=== PATIENT | female | born 1990 | race African-American/Black ===

== ENCOUNTER 2020-06-07 13:20 | Emergency (ER) | payer SELFPAY ==
--- NOTE | 2020-06-07 15:41 | PC.NURSE ---
CALLED WR PATIENT NO RESPONSE
--- NOTE | 2020-06-07 15:51 | PC.NURSE ---
Attempted to call pt to triage, no answer in waiting room.
== END 2020-06-07 16:04 | disposition left against medical advice (07) ==
PROVIDERS: Emergency Provider Emergency Medicine
DX: G44.309 Post-traumatic headache, unspecified, not intractable (principal)
CPT/HCPCS: 99281

== ENCOUNTER 2020-06-08 23:57 | Emergency (ER) | payer MEDICAID, SELFPAY ==
[2020-06-09 00:33] VITALS: BP 121/72; PULSE 84; RESP 16; TEMP 36.1; O2SAT 98; BMI 50.6
--- NOTE | 2020-06-09 00:55 | ED.HEATRA ---
HPI - Head Injury General Chief complaint: Headache Stated complaint: HEADACHE/HEAD INJURY Time Seen by Provider: 06/09/20 00:54 Source: patient Mode of arrival: ambulatory Limitations: no limitations History of Present Illness HPI Narrative: Patient hit her back of the head to under sink when getting up about 3 days ago no loss of consciousness no laceration no swelling of the head patient been complaining of mild headache since then MD Complaint: head injury and head pain Onset (ago): day(s) (3) Related Data Previous Rx's Medication Instructions Recorded coccuvlewd-yotamszfdgrkr-vcqw 1 cap PO Q6H PRN #20 cap 06/09/20 [Fioricet] Allergies Allergy/AdvReac Type Severity Reaction Status Date / Time naproxen [NAPROXEN] Allergy Mild VOMITING Verified 06/09/20 00:33 Review of Systems Review of Systems: REVIEW OF SYSTEMS: Pertinent positives and negatives are stated above in the history. GEN: no fevers, chills, fatigue HEENT: no nasal congestion, sore throat, ear pain NEURO: no , dizziness, focal weakness PULM: no cough, shortness of breath CV: no chest pain, palpitations, LE edema ABD: no abdominal pain, nausea, vomiting, diarrhea : no dysuria, urgency, frequency SKIN: no rash ROS otherwise negative x 10 PMFSH Past Medical History Surgical History H/O knee surgery Physical Exam Vital Signs: Vital Signs: Last Vital Signs Temp 96.9 F 06/09/20 00:33 Pulse 84 06/09/20 00:33 Resp 16 06/09/20 00:33 BP 121/72 06/09/20 00:33 Pulse Ox 98 06/09/20 00:33 Body Mass Index 50.6 Appearance: Alert. Oriented X3. No acute distress. Eyes: Pupils equal, round and reactive to light. ENT: Pharynx normal. mild soft tissue tenderness L back of the head no significant swelling EAC normal bilateral Neck: Normal inspection. Neck supple. CVS: Normal heart rate and rhythm. Pulses normal. Respiratory: No respiratory distress. Breath sounds normal. Abdomen: Soft and nontender. Skin: Skin warm and dry. Normal skin color. Normal skin turgor. Extremities: No lower extremity edema. Good range of movement Neuro: Oriented X 3. No motor deficit. No sensory deficit. MDM - Head Injury Differential Diagnosis Differential diagnosis: Likely closed head injury Discharge Plan Discharge Clinical Impression: Head injury, acute, without loss of consciousness Qualifiers: Encounter type: initial encounter Qualified Code(s): S09.90XA - Unspecified injury of head, initial encounter Patient Disposition: Home, Self-Care Instructions: Head Injury (ED) Additional Instructions: apply ice pack and take pain medicine as prescribed. Report to the ER if any seizures vomiting focal weakness Prescriptions: New ozjmrghroj-dcbagjoltfpmu-ddfu [Fioricet] 50-300-40 mg capsule 1 cap PO Q6H PRN (Reason: pain) Qty: 20 RF: 0
--- NOTE | 2020-06-09 01:16 | PC.NURSE ---
pt medicated per emar for 10/10 head pain. pt neuro intact. perrla. nad at this time.
== END 2020-06-09 01:42 | disposition home or self-care (01) ==
LOC: HO.ED 06-09 01:25
PROVIDERS: Emergency Provider Internal Medicine
DX: S09.90XA Unspecified injury of head, initial encounter (principal); G44.309 Post-traumatic headache, unspecified, not intractable; Y29.XXXA Contact with blunt object, undetermined intent, initial encounter; Y93.9 Activity, unspecified; Y92.002 Bathroom of unspecified non-institutional (private) residence as the place of occurrence of the external cause; Y99.9 Unspecified external cause status; Z79.899 Other long term (current) drug therapy
CPT/HCPCS: 99283; 99284

== ENCOUNTER 2020-08-02 13:41 | Outpatient (REF) | payer MEDICAID, SELFPAY | END 2020-08-02 13:42 | disposition home or self-care (01) | LOC: HO.LAB 13:41 | PROVIDERS: Visit Provider Internal Medicine | DX: Z20.828 Contact with and (suspected) exposure to other viral communicable diseases (principal) | CPT/HCPCS: C9803; U0003 ==

== ENCOUNTER 2021-05-10 04:14 | Emergency (ER) | payer MEDICAID, SELFPAY ==
--- NOTE | ~2021-05-10 | XR_ITS ---
EXAMINATION: XR FOOT, LEFT CLINICAL INFORMATION: Pain and swelling of the left foot. COMPARISON: None TECHNIQUE: AP, lateral, and oblique views of the left foot. FINDINGS: No fracture or dislocation. Alignment is anatomic. Joint spaces are maintained. Mild soft tissue swelling of the foot. XR/XR foot LT min 3V IMPRESSION: No osseous abnormality.
[2021-05-10 04:16] VITALS: BP 113/70; PULSE 82; RESP 16; TEMP 36.6; O2SAT 97; BMI 57.4
--- NOTE | 2021-05-10 04:40 | ED_ITS ---
HPI - General Adult General Chief complaint: Back Pain/Injury Stated complaint: Lower back pain L foot pain Time Seen by Provider: 05/10/21 04:28 Source: patient Mode of arrival: ambulatory Limitations: no limitations History of Present Illness HPI narrative: 31-year-old female who presents emergency department for evaluation of 2 complaints. Complaint 1: The patient states that yesterday afternoon she was sitting on the toilet. When she stood up she developed severe pain in her right lower back. She states she had difficulty straightening up. She took Advil 600 mg orally with some relief for pain. She states that this morning prior to coming to the emergency department the pain in her lower back got worse. She describes the pain as a constant, stinging sensation which is 8/10. The pain is worse with movement. The pain does not radiate down her leg. She denies any numbness or weakness of her extremities. The patient took Advil 800 mg orally with no relief for pain. Complaint 2: The patient states that she has been having pain and swelling of her left foot in 3 weeks. She states that initially the swelling was mild is gotten more severe. She also states the pain is got more severe. She denies any injury. She states that she does have arthritis of her knees but has never had gout. She denied fever, chills, or fatigue. Related Data Previous Rx's Medication Instructions Recorded llhjkdzzqx-nhvegvcontvzw-lmtbmzkw 1 cap PO Q6H PRN #20 cap 06/09/20 50 mg-300 mg-40 mg capsule (Fioricet) cyclobenzaprine 10 mg tablet 10 mg PO TID PRN #20 tab 05/10/21 prednisone 20 mg tablet 60 mg PO DAILY 7 Days #21 tab 05/10/21 Allergies Allergy/AdvReac Type Severity Reaction Status Date / Time naproxen [NAPROXEN] Allergy Mild VOMITING Verified 05/10/21 04:16 Review of Systems Review of Systems: Yes all other systems are reviewed and are negative [facility] Past Medical History [facility] Narrative: Past medical history: Osteoarthritis of both knees. Past surgical history: Patient states that she had a scraping of her right knee. Social history: Patient smokes 2 packs of cigarettes per week times 14 years. She drinks alcohol socially. She denies drug use. Surgical History H/O knee surgery Social History Social History Alcohol intake: never Advance Directives: No Advance Directives Information Provided: No Physical Exam Vital Signs: Vital Signs: Last Vital Signs Temp 98 F 05/10/21 04:16 Pulse 82 05/10/21 04:16 Resp 16 05/10/21 04:16 BP 113/70 05/10/21 04:16 Pulse Ox 97 05/10/21 04:16 Body Mass Index 57.4 Const: Other: Very pleasant and cooperative female patient, she was from the waiting room into the emergency department without any difficulty. She answers all questions appropriately HENMT: Head: Yes normal to inspection, Yes normocephalic and Yes atraumatic Ears: external ears normal General nose exam: Normal external nose present Face and sinus: Yes normal facial exam Mouth: Normal oral and palatal mucosa present Throat: Yes posterior oropharynx normal Eyes: General: appearance normal, both eyes and all related structures Pupils: Equal, round and reactive pupils present Neck: Neck: Yes normal visual inspection, Yes no lymphadenopathy, Yes trachea midline and Yes supple Chest: Chest palpation & inspection: normal inspection of the chest and normal palpation of entire chest wall Resp: Effort & Inspection: normal respiratory effort and able to speak in complete sentences Auscultation: clear to auscultation bilaterally Cardio: Rate: regular rate Rhythm: regular rhythm Heart sounds: S1 normal heart sound present, S2 normal heart sound present and no murmurs GI: Inspection: Yes normal to inspection Palpation (GI): Soft to palpation, nontender and no guarding Auscultation: normal bowel sounds : General: Yes no CVA tenderness Back/Spine/Pelvis: Back: no CVA tenderness Thoracic/Lumbar Spine: paraspinal muscle tenderness on the right in the lower lumbar, No thoracic spinal tenderness, No lumbar spinal tenderness and No straight leg raise positive Skin: General skin exam: no rashes or lesions noted Neuro: Cranial nerves: Yes CN's II-XII intact bilaterally and Yes Equal, round and reactive pupils present Cognition (Neuro): normal cognition Motor exam (neuro): 5/5 motor strength present throughout Extrem: Other: The patient's left foot does appear to be swollen compared to the right, there is no erythema increased warmth but she does have significant tenderness with palpation over the 3rd 4th and 5th metatarsals and over the 3rd 4th and 5th MTP joints. There is no tenderness with palpation over the 1st and 2nd MTP joints. Extremities neurovascular intact. Psych: Appearance: grossly normal Speech and movement: Normal speech and movement present Affect: normal affect Attitude: cooperative Thought process: Normal thought process present Thought content: Normal thought chuyita nt present Course Course Course Narrative: 31-year-old female presents emergency department for evaluation of lower back pain x1 day and left foot pain and swelling x3 weeks. Patient's back exam did reveal tenderness with palpation of the lumbar paraspinal muscles otherwise was unremarkable. Patient's presentation findings are consistent with a musculoskeletal injury of her back. The patient does have swelling and tenderness with palpation of the left foot mainly over the 3rd 4th and 5th metatarsals and 3rd 4th and 5th MTP joints. I did order an x-ray of the left foot to rule out possible occult fracture . 0516: The x-ray of the patient's left foot revealed no acute fracture. Patient's symptoms are consistent with an inflammatory arthritis, possibly gout. The patient will be treated with prednisone 60 mg once a day for 7 days. She was given her 1st dose here in the emergency department. This should also help reduce the inflammation in her back. She was also given a cyclobenzaprine 10 mg tablet here in the emergency department. She was prescribed cyclobenzaprine 10 mg 3 times a day as needed for pain and spasm of her back. She was advised not to take NSAIDs while taking prednisone. She was advised to take Tylenol for pain. She was given printed and verbal instructions and discharged home. Discharge Plan Discharge Clinical Impression: Inflammatory arthritis Acute lumbar myofascial strain Qualifiers: Encounter type: initial encounter Qualified Code(s): S39.012A - Strain of muscle, fascia and tendon of lower back, initial encounter Patient Disposition: Home, Self-Care Instructions: Low Back Strain (ED) Additional Instructions: The x-ray of your left foot revealed no broken bones. The pain and swelling in your foot is consistent with an inflammatory arthritis. Gout is a type of inflammatory arthritis however I am not certain if gout is the cause of your inflammatory arthritis. I want to treat the inflammation in your foot and in your back with prednisone 60 mg once a day for 7 days. While you are taking prednisone do not take any rjoy-wjp-wyhvwfy anti- inflammatory pain medications such as Advil, Motrin, ibuprofen, naproxen or Aleve. Take Tylenol (acetaminophen) 500 mg pills, 2 pills every 4 to 6 hours as needed for pain. I am also prescribing Flexeril (cyclobenzaprine) 10 mg pills, take 1 pill every 8 hours as needed for pain and spasm of your back. This medication will make you sleepy. Do not drive or work while taking this medication. Follow-up with your doctor in 2 days. Please return to the emergency department if your symptoms get worse or if you develop any symptoms that are concerning to you. Prescriptions: New cyclobenzaprine 10 mg tablet 10 mg PO TID PRN (Reason: muscle pain or spasm) Qty: 20 RF: 0 prednisone 20 mg tablet 60 mg PO DAILY 7 Days Qty: 21 RF: 0 No Action welrguyvwx-hmtgpadpmnewb-prsk [Fioricet] 50-300-40 mg capsule 1 cap PO Q6H PRN (Reason: pain) Qty: 20 RF: 0 Stand Alone Forms: Work/School Release
[2021-05-10] MEDS: Cyclobenzaprine HCl 10 MG TABLET PO (05:25)
[2021-05-10] MEDS: predniSONE 20 MG TABLET 60 MG PO (05:26)
== END 2021-05-10 05:28 | disposition home or self-care (01) ==
PROVIDERS: Emergency Provider Emergency Medicine Emergency Medical Services
DX: S39.012A Strain of muscle, fascia and tendon of lower back, initial encounter (principal); M19.90 Unspecified osteoarthritis, unspecified site; M79.672 Pain in left foot; X58.XXXA Exposure to other specified factors, initial encounter; Y93.9 Activity, unspecified; Y92.9 Unspecified place or not applicable; Y99.9 Unspecified external cause status
CPT/HCPCS: 73630; 99283

== ENCOUNTER 2021-07-10 16:13 | Emergency (ER) | payer MEDICAID, SELFPAY ==
--- NOTE | ~2021-07-10 | XR_ITS ---
EXAMINATION: XR CHEST CLINICAL INFORMATION: Chest tightness. Shortness of breath. COMPARISON: None TECHNIQUE: 2 views of the chest were obtained. FINDINGS: No significant abnormality is noted involving the heart, lungs, mediastinum, bony thorax or soft tissues. XR/XR chest 2V IMPRESSION: Unremarkable examination.
[2021-07-10 16:28] VITALS: BP 144/94; PULSE 94; RESP 18; TEMP 36.9; O2SAT 95; BMI 60.3
--- NOTE | 2021-07-10 17:57 | ED.URI ---
HPI - URI/Sore Throat General Chief Complaint: Upper Respiratory Symptoms Stated Complaint: coughing sob Time Seen by Provider: 07/10/21 17:40 Source: patient Mode of arrival: ambulatory Limitations: no limitations History of Present Illness HPI Narrative: 32-year-old female with a history of asthma here with complaints of waking with some chest tightness, wheezing and mild shortness of breath. Patient has not had any fevers, chills, leg swelling or pain. 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 She does not currently have an inhaler at home. Related Data Previous Rx's Medication Instructions Recorded mpqdfnkopo-rhukwpdevybxd-xtghsjst 1 cap PO Q6H PRN #20 cap 06/09/20 50 mg-300 mg-40 mg capsule (Fioricet) cyclobenzaprine 10 mg tablet 10 mg PO TID PRN #20 tab 05/10/21 prednisone 20 mg tablet 60 mg PO DAILY 7 Days #21 tab 05/10/21 Allergies Allergy/AdvReac Type Severity Reaction Status Date / Time naproxen [NAPROXEN] Allergy Mild VOMITING Verified 07/10/21 16:27 Review of Systems Review of Systems: Yes all other systems are reviewed and are negative Constitutional: Constitutional: Reports no additional constitutional complaints, Denies body ache(s), Denies chills, Denies fever(s), Denies headache(s) and Denies weakness Eyes: Eyes: Reports no additional eye complaints and Denies change in vision ENT: Reports system reviewed and no additional complaints, except as documented, Denies dizziness, Denies headache(s), Denies nasal congestion, Denies nasal discharge and Denies neck pain Cardiovascular: Cardiovascular: Reports no additional cardiovascular complaints, Reports chest pain, Denies leg edema and Reports dyspnea Respiratory: Respiratory: Reports no additional respiratory complaints, Reports cough and Reports dyspnea Gastrointestinal: Gastrointestinal: Reports no additional gastrointestinal complaints, Denies abdominal pain, Denies diarrhea, Denies nausea and Denies vomiting Genitourinary: Genitourinary: Reports no additional female genitourinary complaints and Denies urinary incontinence Musculoskeletal: Musculoskeletal: Reports no additional musculoskeletal complaints, Denies back pain, Denies arthralgias, Denies joint swelling, Denies neck pain, Denies numbness and Denies tingling Integumentary/Breasts: Skin/Breast: Reports system reviewed and no additional complaints, except as docu and Denies rash Neurologic: Reports system reviewed and no additional complaints, except as documented, Denies Abnormal speech present, Denies dizziness, Denies headache(s), Denies numbness, Denies tingling and Denies weakness PMFSH Past Medical History Attestation statement: The following information was validated with the patient. Source: old records reviewed and nursing notes reviewed Medical History Asthma COVID-19 Surgical History H/O knee surgery Social History Social History Alcohol intake: never Advance Directives: No Advance Directives Information Provided: Yes Patient : No Physical Exam Vital Signs: Vital Signs: Last Vital Signs Temp 98.6 F 07/10/21 20:02 Pulse 80 07/10/21 20:07 Resp 16 07/10/21 20:07 BP 138/83 07/10/21 20:02 Pulse Ox 99 07/10/21 20:02 BMI result Body Mass Index 60.3 Const: General: cooperative, healthy appearing, comfortable and no acute distress Orientation/consciousness: patient oriented x3 Limitations: no limitations HENMT: Head: Yes normal to inspection Ears: hearing grossly normal bilaterally and TM's normal bilaterally General nose exam: Normal external nose present Face and sinus: Yes normal facial exam Mouth: Normal oral and palatal mucosa present Throat: Yes posterior oropharynx normal, Yes tonsils normal and Yes uvula midline Eyes: General: appearance normal, both eyes and all related structures Pupils: Equal, round and reactive pupils present Neck: Neck: Yes normal visual inspection, Yes full ROM, Yes no lymphadenopathy and Yes no meningeal signs Chest: Chest palpation & inspection: normal inspection of the chest Resp: Other: mild exp wheezing, prolonged expirations Effort & Inspection: normal respiratory effort Cardio: Rate: regular rate Rhythm: regular rhythm Peripheral pulses: Peripheral pulses 2+ throughout GI: Inspection: Yes normal to inspection Palpation (GI): Soft to palpation and nontender Auscultation: normal bowel sounds Back/Spine/Pelvis: Thoracic/Lumbar Spine: thoracic and lumbar spine normal to inspection Skin: General skin exam: no rashes or lesions noted Neuro: General: patient oriented x3, no meningeal signs, no focal motor deficits and normal sensation to monofilament Cranial nerves: Yes Equal, round and reactive pupils present Cognition (Neuro): normal cognition Speech: No Abnormal speech present Gait exam (Neuro): Normal gait present Motor exam (neuro): 5/5 motor strength present throughout Extrem: General: Yes normal to inspection, Yes no pedal edema and Yes no calf tenderness Course Course Course Narrative: 31-year-old female here with complaint some chest tightness, mild shortness of breath and wheezing with cough since waking this morning. Patient has had exposure to RSV which is what brought her in today. The patient's exam is benign. Her chest pain is atypical for ACS. Will check chest x-ray, COVID screen 2039- x-ray shows no acute abnormality. COVID, flu, RSV screen is negative. I did explain to the patient she should retest in several days for persistent symptoms. Her vitals are stable. No tachypnea or hypoxia. Reviewed worrisome signs and symptoms of when to return to the emergency department. Comfortable discharge home. MDM - URI/Sore Throat Medical Records Attestation: I reviewed the patient's medical records. Lab Data Attestation: I reviewed the patient's lab results. Labs: Lab Results 07/10/21 Range/Units 19:33 Influenza Type A (PCR) NEGATIVE (Negative) Influenza Type B (PCR) NEGATIVE (Negative) RSV RNA Qual (PCR) NEGATIVE (Negative) SARS-CoV-2 RNA (RT-PCR) NEGATIVE (Negative) Imaging Data Chest x-ray: Attestation: I personally reviewed and interpreted this imaging study as follows: Radiologist's impression: EXAMINATION: XR CHEST CLINICAL INFORMATION: Chest tightness. Shortness of breath. COMPARISON: None TECHNIQUE: 2 views of the chest were obtained. FINDINGS: No significant abnormality is noted involving the heart, lungs, mediastinum, bony thorax or soft tissues. XR/XR chest 2V IMPRESSION: Unremarkable examination. Discharge Plan Discharge Clinical Impression: Upper respiratory infection, Asthma Patient Disposition: Home, Self-Care Instructions: Asthma (ED), Upper Respiratory Infection (ED) Additional Instructions: Use the inhaler 2 puffs every 4-6 hours as needed for cough or wheezing retest in 2-3 days or persistent symptoms your test today for COVID, flu and RSV are negative Prescriptions: No Action rptrfjfzar-cbynwlzmldpjb-botj [Fioricet] 50-300-40 mg capsule 1 cap PO Q6H PRN (Reason: pain) Qty: 20 RF: 0 cyclobenzaprine 10 mg tablet 10 mg PO TID PRN (Reason: muscle pain or spasm) Qty: 20 RF: 0 prednisone 20 mg tablet 60 mg PO DAILY 7 Days Qty: 21 RF: 0 Referrals: Physician,None [Primary Care Provider] - 2 days Stand Alone Forms: Work/School Release
[2021-07-10 20:02] VITALS: BP 138/83; PULSE 80; RESP 18; TEMP 37; O2SAT 99
[2021-07-10] MEDS: Albuterol Sulfate 90 MCG 8 GM INHALER 2 PUFF INHALE (20:05)
[2021-07-10 20:07] VITALS: PULSE 80; RESP 16; O2SAT 99
[2021-07-10 20:15] LABS: Influenza A PCR NEGATIVE (Negative); Influenza B PCR NEGATIVE (Negative); Resp Syncy Virus RNA Qual PCR NEGATIVE (Negative); SARS COV2 PCR INHOUSE NEGATIVE (Negative)
== END 2021-07-10 20:42 | disposition home or self-care (01) ==
PROVIDERS: Nurse Practitioner Family; Emergency Provider Internal Medicine
DX: J06.9 Acute upper respiratory infection, unspecified (principal); J45.909 Unspecified asthma, uncomplicated; Z20.822 Contact with and (suspected) exposure to COVID-19
CPT/HCPCS: 0241U; 36415; 71046; 94640; 99283; 99284

== ENCOUNTER 2021-09-13 22:47 | Emergency (ER) | payer MEDICAID, SELFPAY ==
[2021-09-14 00:23] VITALS: BP 162/80; PULSE 97; RESP 18; TEMP 36.2; O2SAT 98; BMI 62.4
[2021-09-14 00:45] LABS: Strep A Nucleic Acid Negative (Negative)
[2021-09-14 00:46] LABS: UPreg QC Valid YES; Urine Pregnancy NEGATIVE (NEGATIVE)
[2021-09-14 00:49] LABS: COVID-19 Test Negative (Negative); IDNOW Serial# 9DD0AD1C
--- NOTE | 2021-09-14 02:21 | ED.URI ---
HPI - URI/Sore Throat General Chief Complaint: Upper Respiratory Symptoms Stated Complaint: dry throat, nausea Time Seen by Provider: 09/14/21 00:47 Source: patient Mode of arrival: ambulatory Limitations: no limitations History of Present Illness MD elicited complaint: sore throat and rhinorrhea Onset (ago): week(s) (1) Consistency: progressively worsening Severity: moderate Description of mucous: clear Able to tolerate fluids by mouth: Yes Exacerbating factors: swallowing Relieving factors: nothing Associated symptoms: rhinorrhea, sore throat and nausea Treatments prior to arrival: cold medicine Related Data Previous Rx's Medication Instructions Recorded mlaeomhzqn-msjxusttcripn-vosqmove 1 cap PO Q6H PRN #20 cap 06/09/20 50 mg-300 mg-40 mg capsule (Fioricet) cyclobenzaprine 10 mg tablet 10 mg PO TID PRN #20 tab 05/10/21 prednisone 20 mg tablet 60 mg PO DAILY 7 Days #21 tab 05/10/21 amoxicillin 875 mg-potassium 1 tab PO BID 10 Days #20 tab 09/14/21 clavulanate 125 mg tablet fluconazole 150 mg tablet 150 mg PO DAILY #1 tab 09/14/21 (Diflucan) Allergies Allergy/AdvReac Type Severity Reaction Status Date / Time naproxen [NAPROXEN] Allergy Mild VOMITING Verified 09/14/21 00:27 Review of Systems Review of Systems: Constitutional : no Fever, positive Chills, positive fatigue, no Malaise ENT/Mouth : positive sore throat, positive runny nose Eyes: No Discharge Cardiovascular : No Chest Pain, No SOB Respiratory : No Cough, No Sputum Gastrointestinal : pos Nausea, No Vomiting, No Diarrhea Genitourinary : No Dysuria, No Urinary Frequency Musculoskeletal : no Myalgia Skin : No rash Neuro : No Headache PMFSH Past Medical History Medical History Asthma COVID-19 Surgical History H/O knee surgery Social History Social History (Updated 09/14/21 @ 02:25 by Sulma Lang DO) Alcohol intake: never Patient Tobacco Use Status: Never used Tobacco Advance Directives: No Advance Directives Information Provided: No Patient : Yes Physical Exam Vital Signs: Vital Signs: Last Vital Signs Temp 97.2 F 09/14/21 00:23 Pulse 97 09/14/21 00:23 Resp 18 09/14/21 00:23 BP 162/80 H 09/14/21 00:23 Pulse Ox 98 09/14/21 00:23 BMI result Body Mass Index 62.4 Appearance: Alert. Oriented X3. No acute distress. Eyes: Pupils equal, round and reactive to light. ENT: Pharynx moderate generalized swelling with exudates, uvula midline, tolerating secretions normal voice Neck: Normal inspection. Neck supple. CVS: Normal heart rate and rhythm. Pulses normal. Respiratory: No respiratory distress. Breath sounds normal. Abdomen: Soft and non-tender. Skin: Skin warm and dry. Normal skin color. Normal skin turgor. Extremities: No lower extremity edema. No calf ttp Neuro: Oriented X 3. No motor deficit. No sensory deficit. MDM - URI/Sore Throat MDM Narrative Medical decision making narrative: 31 yo female with no sig PMH here with 1 week of sore throat and runny nose also worried she might be due to vomiting at this time triage swabs for strep/covid negative, test negative but her exam shows tonsilar swelling and exudates will start on augmentin, diflucan post abx. She is tolerating secretions, not toxic, no signs of deeper space infection. Lab Data Labs: Lab Results 09/14/21 09/14/21 09/14/21 Range/Units 00:29 00:29 00:35 Urine Test NEGATIVE (NEGATIVE) COVID-19 (MASON) Negative (Negative) COVID-19 Clin Com See Note S. pyogenes GrpA HUONG Negative (Negative) Discharge Plan Discharge Clinical Impression: Pharyngitis Patient Disposition: Home, Self-Care Instructions: Pharyngitis (ED) Additional Instructions: return to ED for any worsening symptoms or concerns COVID negative Prescriptions: New amoxicillin-pot clavulanate 875-125 mg tablet 1 tab PO BID 10 Days Qty: 20 0RF fluconazole [Diflucan] 150 mg tablet 150 mg PO DAILY Qty: 1 0RF Rx Instructions: take after antibiotics No Action hdvyuizdbo-igztjlcaddrus-hbrt [Fioricet] 50-300-40 mg capsule 1 cap PO Q6H PRN (Reason: pain) Qty: 20 0RF cyclobenzaprine 10 mg tablet 10 mg PO TID PRN (Reason: muscle pain or spasm) Qty: 20 0RF prednisone 20 mg tablet 60 mg PO DAILY 7 Days Qty: 21 0RF Referrals: Physician,Unknown J [Primary Care Provider] - 2 days (if not better by Thursday)
[2021-09-14] MEDS: Amoxicillin 500 MG CAPSULE PO (02:25)
== END 2021-09-14 02:29 | disposition home or self-care (01) ==
PROVIDERS: Emergency Provider Emergency Medicine
DX: J02.9 Acute pharyngitis, unspecified (principal); Z20.822 Contact with and (suspected) exposure to COVID-19
CPT/HCPCS: 36415; 81025; 87635; 87651; 99283

== ENCOUNTER 2021-10-12 15:04 | Emergency (ER) | payer MEDICAID, SELFPAY ==
[2021-10-12 15:33] VITALS: BP 152/96; PULSE 100; RESP 19; TEMP 36.6; O2SAT 98; BMI 59.6
[2021-10-12 15:59] LABS: COVID-19 Test Negative (Negative); IDNOW Serial# 16C4AD1C
[2021-10-12 16:01] LABS: Strep A Nucleic Acid Negative (Negative)
--- NOTE | 2021-10-12 18:29 | ED.GENADULT ---
HPI - General Adult General Chief complaint: Upper Respiratory Symptoms Stated complaint: sore throat Time Seen by Provider: 10/12/21 18:12 Source: patient Mode of arrival: ambulatory Limitations: no limitations History of Present Illness HPI narrative: 31-year-old female history of asthma presents to ED for sore throat for couple of weeks staff feels dry. Patient denies any sensation of throat closing or trouble swallowing, chest pain, shortness of breath, fever, or chills. Patient states she had strep last month, it improved and thinks it came back the past couple weeks. Patient states when she eats foods and go to sleep she has acid burning sensation that goes up to her throat. Patient states when she takes gyvy-vsu-wpdxjdv Tums or Maalox it would improve. Patient denies any nausea or vomiting. Patient denies any chest pain or shortness of breath. Patient denies any abdominal pain. Related Data Previous Rx's Medication Instructions Recorded raxmtmmuzx-ausvmusjogldo-qbotruhc 1 cap PO Q6H PRN #20 cap 06/09/20 50 mg-300 mg-40 mg capsule (Fioricet) cyclobenzaprine 10 mg tablet 10 mg PO TID PRN #20 tab 05/10/21 prednisone 20 mg tablet 60 mg PO DAILY 7 Days #21 tab 05/10/21 amoxicillin 875 mg-potassium 1 tab PO BID 10 Days #20 tab 09/14/21 clavulanate 125 mg tablet fluconazole 150 mg tablet 150 mg PO DAILY #1 tab 09/14/21 (Diflucan) famotidine 20 mg tablet (Pepcid) 20 mg PO BID 14 Days #28 tab 10/12/21 Allergies Allergy/AdvReac Type Severity Reaction Status Date / Time naproxen [NAPROXEN] Allergy Mild VOMITING Verified 09/14/21 00:27 Review of Systems Review of Systems: Sore throat. Acid burning sensation going up throat Yes all other systems are reviewed and are negative [facility] Past Medical History Medical History Asthma COVID-19 Surgical History H/O knee surgery Social History Social History (Updated 09/14/21 @ 02:25 by Sulma Lang DO) Alcohol intake: never Patient Tobacco Use Status: Never used Tobacco Advance Directives: No Advance Directives Information Provided: No Patient : No Physical Exam ED Vital Signs: Vital Signs - 24 hr 10/12/21 15:33 Temperature 98 F Pulse Rate 100 Respiratory Rate 19 Blood Pressure 152/96 H Pulse Oximetry 98 BMI result Body Mass Index 59.6 Const General: cooperative, healthy appearing, comfortable, no acute distress, well developed, alert, awake and Physically active Orientation/consciousness: oriented to time and patient oriented x3 HENMT Head: Yes normal to inspection, Yes No palpable skull fracture present, Yes normocephalic, Yes atraumatic and No abrasion Ears: hearing grossly normal bilaterally, external ears normal, TM's normal bilaterally, EAC's normal, mastoids normal and no periauricular adenopathy Throat: Yes posterior oropharynx normal, Yes tonsils normal and Yes uvula midline Eyes General: appearance normal, both eyes and all related structures Neck Neck: Yes normal visual inspection, Yes full ROM, Yes no lymphadenopathy, Yes no meningeal signs, Yes trachea midline, Yes supple, No anterior neck swelling and No tender Chest Chest palpation & inspection: normal inspection of the chest and normal palpation of entire chest wall Resp Effort & Inspection: normal respiratory effort and able to speak in complete sentences Auscultation: clear to auscultation bilaterally Cardio Jugular venous distension: no JVD Heart sounds: S1 normal heart sound present and S2 normal heart sound present GI Inspection: Yes normal to inspection and No abdominal wall ecchymosis Palpation (GI): Soft to palpation, not firm, nontender, no guarding and not rigid General: No CVA tenderness and Yes no CVA tenderness Back/Spine/Pelvis Back: no CVA tenderness, No CVA tenderness and No back tenderness Skin General skin exam: no rashes or lesions noted and elasticity normal Neuro General: oriented to time, patient oriented x3, gait normal, no meningeal signs and CN's II-XI intact bilaterally Cranial nerves: Yes CN's II-XII intact bilaterally Extrem General: Yes normal to inspection and Yes full ROM Psych Appearance: grossly normal, well kempt and not disheveled Course Course Course Narrative: COVID swab and strep test ordered. Reevaluation(s) Reevaluation #1: COVID swab and strep test came back negative. Patient well-appearing. Patient denies presently any burning sensation just sore throat. But because patient for the past weeks having sore throat and at times having acid burning sensation going up her throat. patient will be discharged with Pepcid for GERD like symptoms. Presently not suspecting any IA. patient healthy and denies any history of diabetes, hypertension, high cholesterol, or any unusual of family less than 40 from cardiac or pulmonary issues. Presently no indication for cardiac workup. Patient denies any chest pain presently or shortness of breath. Patient denies any abdominal pain. Time: 18:37 Medical Decision Making MDM Narrative Medical decision making narrative: Pharyngitis. GERD Lab Data Labs: Lab Results 10/12/21 10/12/21 Range/Units 15:38 15:38 COVID-19 (MASON) Negative (Negative) COVID-19 Clin Com See Note S. pyogenes GrpA HUONG Negative (Negative) Discharge Plan Discharge Clinical Impression: Pharyngitis, Gastroesophageal reflux disease Patient Disposition: Home, Self-Care Instructions: Pharyngitis (ED), Gastroesophageal Reflux Disease (ED) Additional Instructions: Your COVID swab and strep test came back negative. Differential diagnosis is pharyngitis versus GERD due to acid burning sensation. You will be discharged with Pepcid. Return to the ED for any fever, chills, chest pain, shortness of breath, abdominal pain, significant acid burning sensation, sensation of throat closing, drooling, change in voice, shortness of breath, inability tolerate solid food/liquid, chest pain, nausea, enesus or any other concerning symptoms. Please follow-up with primary care provider Prescriptions: New famotidine [Pepcid] 20 mg tablet 20 mg PO BID 14 Days Qty: 28 0RF No Action abqdpppbsh-ykhrjjxuruinv-gabh [Fioricet] 50-300-40 mg capsule 1 cap PO Q6H PRN (Reason: pain) Qty: 20 0RF cyclobenzaprine 10 mg tablet 10 mg PO TID PRN (Reason: muscle pain or spasm) Qty: 20 0RF prednisone 20 mg tablet 60 mg PO DAILY 7 Days Qty: 21 0RF amoxicillin-pot clavulanate 875-125 mg tablet 1 tab PO BID 10 Days Qty: 20 0RF fluconazole [Diflucan] 150 mg tablet 150 mg PO DAILY Qty: 1 0RF Rx Instructions: take after antibiotics Interventions: ED Discharge Assessment Last Done: 10/12/21 18:52 Discharge Date/Time: 10/12/21 18:53 Print Language: Cook Islander
== END 2021-10-12 18:53 | disposition home or self-care (01) ==
PROVIDERS: Emergency Provider Emergency Medicine Emergency Medical Services
DX: J02.9 Acute pharyngitis, unspecified (principal); K21.9 Gastro-esophageal reflux disease without esophagitis; Z20.822 Contact with and (suspected) exposure to COVID-19
CPT/HCPCS: 87635; 87651; 99283

== ENCOUNTER 2021-11-05 08:30 | Emergency (ER) | payer MEDICAID, SELFPAY ==
--- NOTE | ~2021-11-05 | CT_ITS ---
EXAMINATION: CT ABDOMEN AND PELVIS WITHOUT CONTRAST CLINICAL INFORMATION: Abdominal pain and hematemesis COMPARISON: None TECHNIQUE: Multidetector volumetric imaging was performed from the superior aspect of the liver through the pubic symphysis. Sagittal and coronal reformatted images were obtained on the technologist's workstation. This CT examination was performed using dose optimization techniques as appropriate, variously including the following: *Automated exposure control *Adjustment of mA and/or kV according to patient size (this includes techniques or standardized protocols for targeted exams where dose is matched to indication/reason for exam; i.e. extremities or head) *Use of iterative reconstruction technique DLP: 1402 mGy-cm FINDINGS: LUNG BASES: The visualized lung bases are unremarkable. LIVER, GALLBLADDER, AND BILIARY TREE: The liver is normal in size, shape, and attenuation. No focal hepatic lesion or biliary ductal dilatation is present. The gallbladder is unremarkable with no evidence of radiopaque gallstones, gallbladder wall thickening, or obvious pericholecystic inflammatory changes. PANCREAS: Unremarkable. SPLEEN: Unremarkable. ADRENAL GLANDS: Unremarkable. KIDNEYS AND URETERS: The kidneys are normal in size, shape, and attenuation. No hydronephrosis, hydroureter, or calculi seen. No perinephric stranding. BLADDER: Unremarkable. GASTROINTESTINAL TRACT: The small and large bowel are unremarkable. The appendix is unremarkable. ABDOMINAL WALL: There is focal haziness right anterolateral abdominal wall likely focal contusion. No gas visualized. Small lumbar canal hernia containing fat.. LYMPH NODES: Normal. VASCULAR: Unremarkable. PELVIC VISCERA: Unremarkable. OSSEOUS STRUCTURES: Unremarkable. CT/CT abdomen pelvis wo con IMPRESSION: No acute intra-abdominal process seen. There is nonspecific haziness in right anterolateral abdominal wall at the level of umbilicus. Fleischner guidelines were followed.
[2021-11-05 09:06] VITALS: BP 156/92; PULSE 82; RESP 18; TEMP 37.1; O2SAT 98; BMI 64.9
[2021-11-05 09:15] VITALS: BP 149/95; PULSE 83; RESP 19; TEMP 36.5; O2SAT 97
--- NOTE | 2021-11-05 09:40 | ED_ITS ---
HPI - GI Bleed General Chief complaint: Nausea/Vomiting/Diarrhea Stated complaint: vomiting blood/ sore throat Time Seen by Provider: 11/05/21 09:35 Source: patient Mode of arrival: ambulatory Limitations: no limitations History of Present Illness HPI Narrative: 31-year-old female came in for evaluation of vomiting blood and abdominal pain. Patient been complaining of sore throat, this morning felt nauseous and vomited as per patient bright red blood, patient been complaining of upper abdominal pain since yesterday, patient declined any history of alcohol abuse, or taking anticoagulation therapy. Patient also reporting dark stool but no martín bleeding from rectum, no blood in the stool. Patient had a history of of vomiting blood in the past, patient stated that she had upper endoscopy at different hospital many years ago which showed gastritis but with no active bleeding then. Patient emergency department feeling nauseous and vomited once with streaks of blood in the vomit. Related Data Previous Rx's Medication Instructions Recorded cygvmacvfi-dmamgmontaamz-xmxixqzs 1 cap PO Q6H PRN #20 cap 06/09/20 50 mg-300 mg-40 mg capsule (Fioricet) cyclobenzaprine 10 mg tablet 10 mg PO TID PRN #20 tab 05/10/21 prednisone 20 mg tablet 60 mg PO DAILY 7 Days #21 tab 05/10/21 amoxicillin 875 mg-potassium 1 tab PO BID 10 Days #20 tab 09/14/21 clavulanate 125 mg tablet fluconazole 150 mg tablet 150 mg PO DAILY #1 tab 09/14/21 (Diflucan) famotidine 20 mg tablet (Pepcid) 20 mg PO BID 14 Days #28 tab 10/12/21 omeprazole 40 mg capsule,delayed 40 mg PO DAILY 14 Days #14 cap 11/05/21 release ondansetron HCl 4 mg tablet 4 mg PO Q8H PRN 4 Days #7 tab 11/05/21 Allergies Allergy/AdvReac Type Severity Reaction Status Date / Time naproxen [NAPROXEN] Allergy Mild VOMITING Verified 11/05/21 09:06 Review of Systems Review of Systems: All other systems are reviewed and are negative Constitutional: Reports as per HPI and Reports no additional constitutional complaints Eyes: Reports as per HPI and Reports no additional eye complaints Reports system reviewed and no additional complaints, except as documented Cardiovascular: Reports as per HPI and Reports no additional cardiovascular complaints Respiratory: Reports as per HPI and Reports no additional respiratory complaints Gastrointestinal: Reports as per HPI and Reports no additional gastrointestinal complaints Genitourinary: Reports no additional female genitourinary complaints Musculoskeletal: Reports no additional musculoskeletal complaints Skin/Breast: Reports system reviewed and no additional complaints, except as docu Psychiatric: Reports no additional psychiatric complaints Endocrine: Reports no additional endocrine complaints Hematologic/Lymphatic: Reports no additional hematologic/lymphatic complaints Allergic/Immunologic: Reports no additional allergic/immunologic complaints Reports system reviewed and no additional complaints, except as documented and Reports Abnormal speech present [facility] Past Medical History Medical History Asthma COVID-19 Surgical History H/O knee surgery Social History Social History Alcohol intake: never Patient Tobacco Use Status: Current someday Tobacco user Use of substances other than those prescribed or required for medical reasons: No Advance Directives: No Advance Directives Information Provided: No Physical Exam Vital Signs: Vital Signs: Last Vital Signs Temp 97.7 F 11/05/21 10:33 Pulse 88 11/05/21 10:33 Resp 14 11/05/21 10:33 BP 117/66 11/05/21 10:33 Pulse Ox 98 11/05/21 10:33 BMI result Body Mass Index 62.1 Vital signs have been reviewed as appeared to be correct. Blood pressure normal. Heart rate normal. Respiration rate normal. Temperature normal. Oxygen saturation normal. Appearance: Alert. Oriented X3. No acute distress. Head: Normal external exam. Normocephalic. Atraumatic. No Carranza signs noted. No raccoon eyes noted Eyes: PERRLA. EOMI. Conjunctiva and sclera normal. Eyelids normal. ENT: TM's Normal. Pharynx normal. Uvula midline. Moist mucous membranes. No trismus noted. No drooling noted. No muffled voice noted. Neck: Normal inspection. Neck supple. FROM. No adenopathy. Thyroid Normal. No meningeal signs. No neck mass noted. CVS: Normal heart rate and rhythm. Heart sound normal. No murmurs noted. Pulses normal throughout. Respiratory: No respiratory distress. Painless inspiration. Breath sounds normal. No wheezes/rales/rhonchi noted. Chest nontender. No accessory muscle usage noted or decreased air movement noted. Abdomen: Soft, obese, tender in the upper abdomen with no rebound tenderness, no guarding. Bowel sounds normal in all 4 quadrants. No distention noted. No organomegaly noted. No visible injury noted. Rectal exam: No stool in the vault, no obvious bleeding. Back: No CVA tenderness. Full range of motion noted. Skin: Skin warm and dry. Normal skin color. Normal skin turgor. No rashes/lesions/lacerations noted. Extremities: No lower extremity edema. Extremities exhibit normal range of motion. Extremities nontender. Neuro: Oriented X 3. Cranial nerve exam: II-XII are grossly intact No motor deficit. No sensory deficit. Reflexes normal. Course Course Course Narrative: Assessment and plan. 31-year-old female came in for evaluation of sore throat, nausea and vomiting with bright red blood in the vomiting, patient while in emergency department had 1 vomiting that been controlled for the past 4- 5 hours with no further bleeding, stool is negative for blood. Discharge the patient PPI/Zofran and follow-up GI. MDM - GI Bleed Medical Records Attestation: I reviewed the patient's medical records. Lab Data Attestation: I reviewed the patient's lab results. Result diagrams: 11/05/21 09:44 11/05/21 09:44 Labs: Lab Results 11/05/21 11/05/21 11/05/21 Range/Units 09:34 09:34 09:34 WBC (4.8-10.8) X10*3/uL RBC (4.20-5.50) X10*6/uL Hgb (12.0-16.0) g/dl Hct (37.0-47.0) % MCV (80.0-98.0) fL MCH (27.0-33.0) pg MCHC (31.0-35.0) g/dl RDW (11.0-16.0) % Plt Count (160-400) X10*3/uL MPV (9.4-12.3) fL Immature Gran % (Auto) (0.0-0.4) % Neut % (Auto) (45-73) % Lymph % (Auto) (20-40) % [place] % (Auto) (2-11) % Eos % (Auto) (0-4) % Baso % (Auto) (0-2) % Lymph # (Auto) (1.2-4.9) X10*3/uL [place] # (Auto) (0.1-1.2) X10*3/uL Eos # (Auto) (0.0-0.4) X10*3/uL Baso # (Auto) (0.0-0.2) X10*3/uL Abs Immat Gran (auto) (0.00-0.03) X10*3/uL Absolute Neuts (auto) (2.0-8.3) x10*3/uL Absolute Nucleated RBC (0.0-0.012) X10*3/uL Nucleated RBC % (auto) (0.0-0.2) /100WBC PT (9.9-13.0) SEC INR (0.9-1.1) APTT (24.1-38.0) SEC Sodium (135-145) mmol/L Potassium (3.3-5.1) mmol/L Chloride (96-108) mmol/L Carbon Dioxide (22-29) mmol/L Anion Gap (12-20) BUN (9-16) mg/dL Creatinine (0.5-1.4) mg/dL Estim Creat Clear Calc Estimated GFR Random Glucose (60-115) mg/dL Calcium (8.4-10.2) mg/dL Total Bilirubin (0.0-1.0) mg/dL Direct Bilirubin (0.0-0.5) mg/dL AST (5-31) U/L ALT (0-31) U/L Alkaline Phosphatase (39-117) U/L Total Protein (6.5-8.0) g/dL Albumin (3.5-5.0) g/dL Lipase (8-78) U/L Urine Color YELLOW Urine Appearance CLEAR Urine pH 6.0 (5.0-8.0) Ur Specific [place] 1.015 (1.005-1.025) Urine Protein NEG (NEG-TRACE) MG/DL Urine Glucose (UA) NEG (NEG) MG/DL Urine Ketones NEG (NEG) MG/DL Urine Blood NEG (NEG) Urine Nitrite NEG (NEG) Ur Leukocyte Esterase NEG (NEG) Urine Test NEGATIVE (NEGATIVE) Stool Occult Blood NEGATIVE (NEGATIVE) S. pyogenes GrpA HUONG (Negative) 11/05/21 11/05/21 11/05/21 Range/Units 09:44 09:44 09:44 WBC 13.2 H (4.8-10.8) X10*3/uL RBC 4.94 (4.20-5.50) X10*6/uL Hgb 14.4 (12.0-16.0) g/dl Hct 43.4 (37.0-47.0) % MCV 87.9 (80.0-98.0) fL MCH 29.1 (27.0-33.0) pg MCHC 33.2 (31.0-35.0) g/dl RDW 14.4 (11.0-16.0) % Plt Count 326 (160-400) X10*3/uL MPV 9.3 L (9.4-12.3) fL Immature Gran % (Auto) 0.6 H (0.0-0.4) % Neut % (Auto) 72.2 (45-73) % Lymph % (Auto) 19.1 L (20-40) % [place] % (Auto) 6.3 (2-11) % Eos % (Auto) 1.7 (0-4) % Baso % (Auto) 0.1 (0-2) % Lymph # (Auto) 2.5 (1.2-4.9) X10*3/uL [place] # (Auto) 0.8 (0.1-1.2) X10*3/uL Eos # (Auto) 0.2 (0.0-0.4) X10*3/uL Baso # (Auto) 0.0 (0.0-0.2) X10*3/uL Abs Immat Gran (auto) 0.08 H (0.00-0.03) X10*3/uL Absolute Neuts (auto) 9.5 H (2.0-8.3) x10*3/uL Absolute Nucleated RBC 0.000 (0.0-0.012) X10*3/uL Nucleated RBC % (auto) 0.0 (0.0-0.2) /100WBC PT 12.7 (9.9-13.0) SEC INR 1.1 (0.9-1.1) APTT 37.6 (24.1-38.0) SEC Sodium 138 (135-145) mmol/L Potassium 4.2 (3.3-5.1) mmol/L Chloride 106 (96-108) mmol/L Carbon Dioxide 21 L (22-29) mmol/L Anion Gap 15 (12-20) BUN 6 L (9-16) mg/dL Creatinine 0.76 (0.5-1.4) mg/dL Estim Creat Clear Calc 153.9 Estimated GFR > 60 Random Glucose 111 (60-115) mg/dL Calcium 9.1 (8.4-10.2) mg/dL Total Bilirubin 0.5 (0.0-1.0) mg/dL Direct Bilirubin 0.2 (0.0-0.5) mg/dL AST 17 (5-31) U/L ALT 24 (0-31) U/L Alkaline Phosphatase 99 (39-117) U/L Total Protein 7.2 (6.5-8.0) g/dL Albumin 3.9 (3.5-5.0) g/dL Lipase 15 (8-78) U/L Urine Color Urine Appearance Urine pH (5.0-8.0) Ur Specific [place] (1.005-1.025) Urine Protein (NEG-TRACE) MG/DL Urine Glucose (UA) (NEG) MG/DL Urine Ketones (NEG) MG/DL Urine Blood (NEG) Urine Nitrite (NEG) Ur Leukocyte Esterase (NEG) Urine Test (NEGATIVE) Stool Occult Blood (NEGATIVE) S. pyogenes GrpA HUONG (Negative) 11/05/21 Range/Units 09:55 WBC (4.8-10.8) X10*3/uL RBC (4.20-5.50) X10*6/uL Hgb (12.0-16.0) g/dl Hct (37.0-47.0) % MCV (80.0-98.0) fL MCH (27.0-33.0) pg MCHC (31.0-35.0) g/dl RDW (11.0-16.0) % Plt Count (160-400) X10*3/uL MPV (9.4-12.3) fL Immature Gran % (Auto) (0.0-0.4) % Neut % (Auto) (45-73) % Lymph % (Auto) (20-40) % [place] % (Auto) (2-11) % Eos % (Auto) (0-4) % Baso % (Auto) (0-2) % Lymph # (Auto) (1.2-4.9) X10*3/uL [place] # (Auto) (0.1-1.2) X10*3/uL Eos # (Auto) (0.0-0.4) X10*3/uL Baso # (Auto) (0.0-0.2) X10*3/uL Abs Immat Gran (auto) (0.00-0.03) X10*3/uL Absolute Neuts (auto) (2.0-8.3) x10*3/uL Absolute Nucleated RBC (0.0-0.012) X10*3/uL Nucleated RBC % (auto) (0.0-0.2) /100WBC PT (9.9-13.0) SEC INR (0.9-1.1) APTT (24.1-38.0) SEC Sodium (135-145) mmol/L Potassium (3.3-5.1) mmol/L Chloride (96-108) mmol/L Carbon Dioxide (22-29) mmol/L Anion Gap (12-20) BUN (9-16) mg/dL Creatinine (0.5-1.4) mg/dL Estim Creat Clear Calc Estimated GFR Random Glucose (60-115) mg/dL Calcium (8.4-10.2) mg/dL Total Bilirubin (0.0-1.0) mg/dL Direct Bilirubin (0.0-0.5) mg/dL AST (5-31) U/L ALT (0-31) U/L Alkaline Phosphatase (39-117) U/L Total Protein (6.5-8.0) g/dL Albumin (3.5-5.0) g/dL Lipase (8-78) U/L Urine Color Urine Appearance Urine pH (5.0-8.0) Ur Specific [place] (1.005-1.025) Urine Protein (NEG-TRACE) MG/DL Urine Glucose (UA) (NEG) MG/DL Urine Ketones (NEG) MG/DL Urine Blood (NEG) Urine Nitrite (NEG) Ur Leukocyte Esterase (NEG) Urine Test (NEGATIVE) Stool Occult Blood (NEGATIVE) S. pyogenes GrpA HUONG Negative (Negative) Imaging Data CT abdomen pelvis.: Attestation: I personally reviewed and interpreted this imaging study as follows: Radiologist's impression: No acute intra-abdominal process seen. ?There is nonspecific haziness in right anterolateral abdominal wall at the level of umbilicus.? ? Discharge Plan Discharge Clinical Impression: Gastritis Patient Disposition: Home, Self-Care Instructions: Gastritis (ED) Prescriptions: New ondansetron HCl 4 mg tablet 4 mg PO Q8H PRN (Reason: nausea and vomiting) 4 Days Qty: 7 0RF omeprazole 40 mg capsule,delayed release(DR/EC) 40 mg PO DAILY 14 Days Qty: 14 0RF No Action crvmotiizu-fhdtvwwvugzyb-dlzr [Fioricet] 50-300-40 mg capsule 1 cap PO Q6H PRN (Reason: pain) Qty: 20 0RF cyclobenzaprine 10 mg tablet 10 mg PO TID PRN (Reason: muscle pain or spasm) Qty: 20 0RF prednisone 20 mg tablet 60 mg PO DAILY 7 Days Qty: 21 0RF amoxicillin-pot clavulanate 875-125 mg tablet 1 tab PO BID 10 Days Qty: 20 0RF fluconazole [Diflucan] 150 mg tablet 150 mg PO DAILY Qty: 1 0RF Rx Instructions: take after antibiotics famotidine [Pepcid] 20 mg tablet 20 mg PO BID 14 Days Qty: 28 0RF Referrals: Lavell Norris MD [Physician] - 2 days Stand Alone Forms: Work/School Release
[2021-11-05 09:42] LABS: OBS Int Ctl Valid YES; OBS1 NEGATIVE (NEGATIVE)
[2021-11-05 09:45] LABS: Appearance Urine CLEAR; Color Urine YELLOW; Glucose Urine UA NEG (NEG); Leukocyte Esterase Urine NEG (NEG); Nitrite Urine NEG (NEG); Specific Gravity - Urine 1.015 (1.005-1.025); Urine Blood NEG (NEG); Urine Ketones NEG (NEG); Urine Protein NEG (NEG-TRACE)
[2021-11-05 09:47] LABS: UPreg QC Valid YES; Urine Pregnancy NEGATIVE (NEGATIVE)
[2021-11-05] MEDS: Pantoprazole Sodium 40 MG/10 ML VIAL IVPUSH (09:48)
[2021-11-05] MEDS: ondansetron HCL 4 MG/2 ML VIAL IVPUSH (09:48)
[2021-11-05] MEDS: 0.9 % Sodium Chloride 1,000 ML 999 ML IV (09:48)
[2021-11-05 09:50] LABS: Basophils Percent Auto 0.1 % (0-2); Eosinophils Absolute Auto 0.2 X10*3/uL (0.0-0.4); Eosinophils Percent Auto 1.7 % (0-4); Hematocrit 43.4 % (37.0-47.0); Hemoglobin 14.4 g/dl (12.0-16.0); Imm Gran Abs Auto 0.08 X10*3/uL (0.00-0.03); Imm Gran Pct Auto 0.6 % (0.0-0.4); Lymphocytes Absolute Auto 2.5 X10*3/uL (1.2-4.9); Lymphocytes Percent Auto 19.1 % (20-40); MANUAL DIFF FLAG NO; Mean Corpuscular HGB Conc 33.2 g/dl (31.0-35.0); Mean Corpuscular Hemoglobin 29.1 pg (27.0-33.0); Mean Corpuscular Volume 87.9 fL (80.0-98.0); Mean Platelet Volume 9.3 fL (9.4-12.3); Monocytes Absolute Auto 0.8 X10*3/uL (0.1-1.2); Monocytes Percent Auto 6.3 % (2-11); Neutrophils Absolute Auto 9.5 x10*3/uL (2.0-8.3); Neutrophils Percent Auto 72.2 % (45-73); Platelet Count 326 X10*3/uL (160-400); Red Blood Count 4.94 X10*6/uL (4.20-5.50); Red Cell Distribution Width 14.4 % (11.0-16.0); White Blood Count 13.2 X10*3/uL (4.8-10.8)
[2021-11-05 09:52] VITALS: BMI 62.1
[2021-11-05 09:57] LABS: INTERNATIONAL NORM RATIO 1.1 (0.9-1.1); Prothrombin Time 12.7 SEC (9.9-13.0)
[2021-11-05 09:59] LABS: Partial Thromboplastin Time 37.6 SEC (24.1-38.0)
[2021-11-05 10:11] LABS: Alanine Aminotransferase 24 U/L (0-31); Albumin Level 3.9 g/dL (3.5-5.0); Alkaline Phosphatase 99 U/L (39-117); Anion Gap 15 (12-20); Aspartate Amino Transferase 17 U/L (5-31); Bilirubin Direct 0.2 mg/dL (0.0-0.5); Bilirubin Total 0.5 mg/dL (0.0-1.0); Blood Urea Nitrogen 6 mg/dL (9-16); Calcium 9.1 mg/dL (8.4-10.2); Carbon Dioxide 21 mmol/L (22-29); Chloride 106 mmol/L (96-108); Creatinine Clr Calc Pharmacy 153.9; Estimated Glomerular Filt Rate > 60; Glucose Random 111 mg/dL (60-115); Lipase 15 U/L (8-78); Potassium 4.2 mmol/L (3.3-5.1); Sodium 138 mmol/L (135-145); Total Protein 7.2 g/dL (6.5-8.0)
[2021-11-05 10:33] VITALS: BP 117/66; PULSE 88; RESP 14; TEMP 36.5; O2SAT 98
--- NOTE | 2021-11-05 10:42 | PC.NURSE ---
patient showed RN vomit in emesis bag, clear/bile looking with a few small red specks in with it. MD made aware.
[2021-11-05 10:54] LABS: Strep A Nucleic Acid Negative (Negative)
[2021-11-05 12:15] VITALS: BP 107/69; PULSE 86; RESP 19; TEMP 36.8; O2SAT 100
== END 2021-11-05 12:23 | disposition home or self-care (01) ==
PROVIDERS: Emergency Provider Emergency Medicine
DX: K29.70 Gastritis, unspecified, without bleeding (principal); R11.2 Nausea with vomiting, unspecified
CPT/HCPCS: 36415; 74176; 80048; 80076; 81003; 81025; 82272; 83690; 85025; 85610; 85730; 87651; 96361; 96374; 96375; 99284; J2405

== ENCOUNTER 2021-11-10 20:52 | Emergency (ER) | payer MEDICAID, SELFPAY ==
--- NOTE | ~2021-11-10 | XR_ITS ---
EXAMINATION: XR CHEST CLINICAL INFORMATION: Difficulty breathing COMPARISON: 07/10/2021 TECHNIQUE: Frontal view of the chest was obtained. FINDINGS: Lung volumes are symmetric. No focal consolidation is seen. No evidence of pneumothorax, pleural effusion, or pulmonary edema. The cardiomediastinal contour is unremarkable. No acute osseous findings are seen. XR/XR chest 1V IMPRESSION: No acute cardiopulmonary findings.
[2021-11-10 21:21] VITALS: BP 141/85; PULSE 102; RESP 18; TEMP 37.1; O2SAT 97; BMI 62.7
[2021-11-10 21:49] LABS: Strep A Nucleic Acid Negative (Negative)
[2021-11-10 21:55] LABS: IDNOW Serial# 16C4AD1C
[2021-11-10 21:56] LABS: COVID-19 Test Negative (Negative); Influenza A Negative (Negative); Influenza B2 Negative (Negative)
--- NOTE | 2021-11-10 22:37 | ED_ITS ---
HPI - General Adult General Chief complaint: General Medical Stated complaint: sorethroat Time Seen by Provider: 11/10/21 22:37 Source: patient and family Mode of arrival: ambulatory Limitations: no limitations History of Present Illness HPI narrative: 31 years old female came in for evaluation of sore throat. Otherwise patient declined fever or chills. Patient was seen a week ago for evaluation of vomiting blood and abdominal pain patient was discharged home with a diagnosis of gastritis and follow-up with Gastroenterology. Patient stated that no more vomiting blood, and coding scheduled to see the gas troenterologist. Related Data Previous Rx's Medication Instructions Recorded egbidsorul-ggnvkqjghogly-iceodiea 1 cap PO Q6H PRN #20 cap 06/09/20 50 mg-300 mg-40 mg capsule (Fioricet) cyclobenzaprine 10 mg tablet 10 mg PO TID PRN #20 tab 05/10/21 prednisone 20 mg tablet 60 mg PO DAILY 7 Days #21 tab 05/10/21 amoxicillin 875 mg-potassium 1 tab PO BID 10 Days #20 tab 09/14/21 clavulanate 125 mg tablet fluconazole 150 mg tablet 150 mg PO DAILY #1 tab 09/14/21 (Diflucan) famotidine 20 mg tablet (Pepcid) 20 mg PO BID 14 Days #28 tab 10/12/21 omeprazole 40 mg capsule,delayed 40 mg PO DAILY 14 Days #14 cap 11/05/21 release ondansetron HCl 4 mg tablet 4 mg PO Q8H PRN 4 Days #7 tab 11/05/21 Allergies Allergy/AdvReac Type Severity Reaction Status Date / Time naproxen [NAPROXEN] Allergy Mild VOMITING Verified 11/05/21 09:06 Review of Systems Review of Systems: All other systems are reviewed and are negative Constitutional: Reports as per HPI and Reports no additional constitutional complaints Eyes: Reports as per HPI and Reports no additional eye complaints Reports system reviewed and no additional complaints, except as documented Cardiovascular: Reports as per HPI and Reports no additional cardiovascular complaints Respiratory: Reports as per HPI and Reports no additional respiratory complaints Gastrointestinal: Reports as per HPI and Reports no additional gastrointestinal complaints Genitourinary: Reports no additional female genitourinary complaints Musculoskeletal: Reports no additional musculoskeletal complaints Skin/Breast: Reports system reviewed and no additional complaints, except as docu Psychiatric: Reports no additional psychiatric complaints Endocrine: Reports no additional endocrine complaints Hematologic/Lymphatic: Reports no additional hematologic/lymphatic complaints Allergic/Immunologic: Reports no additional allergic/immunologic complaints Reports system reviewed and no additional complaints, except as documented and Reports Abnormal speech present [facility] Past Medical History Medical History Asthma COVID-19 Surgical History H/O knee surgery Social History Social History Alcohol intake: never Patient Tobacco Use Status: Current someday Tobacco user Advance Directives: No Advance Directives Information Provided: No Patient : No Physical Exam ED Vital Signs: Vital Signs - 24 hr 11/10/21 21:21 Temperature 98.8 F Pulse Rate 102 H Respiratory Rate 18 Blood Pressure 141/85 H Pulse Oximetry 97 BMI result Body Mass Index 62.7 Vital signs have been reviewed as appeared to be correct. Blood pressure normal. Heart rate normal. Respiration rate normal. Temperature normal. Oxygen saturation normal. Appearance: Alert. Oriented X3. No acute distress. Head: Normal external exam. Normocephalic. Atraumatic. No Carranza signs noted. No raccoon eyes noted Eyes: PERRLA. EOMI. Conjunctiva and sclera normal. Eyelids normal. ENT: TM's Normal. Pharynx normal. Uvula midline. Moist mucous membranes. No trismus noted. No drooling noted. No muffled voice noted. Neck: Normal inspection. Neck supple. FROM. No adenopathy. Thyroid Normal. No meningeal signs. No neck mass noted. CVS: Normal heart rate and rhythm. Heart sound normal. No murmurs noted. Pulses normal throughout. Respiratory: No respiratory distress. Painless inspiration. Breath sounds normal. No wheezes/rales/rhonchi noted. Chest nontender. No accessory muscle usage noted or decreased air movement noted. Abdomen: Soft and nontender. Bowel sounds normal in all 4 quadrants. No distention noted. No organomegaly noted. No visible injury noted. Back: No CVA tenderness. Full range of motion noted. Skin: Skin warm and dry. Normal skin color. Normal skin turgor. No rashes/lesions/lacerations noted. Extremities: No lower extremity edema. Extremities exhibit normal range of motion. Extremities nontender. Neuro: Oriented X 3. Cranial nerve exam: II-XII are grossly intact No motor deficit. No sensory deficit. Reflexes normal. Course Course Course Narrative: Assessment and plan. 31-year-old female been having sore throat with negative workup and unremarkable physical exam, patient is a smoker about 3 cigarettes a day patient was instructed to try to quit smoking. Will do discharge the patient to follow up with security assessor. Medical Decision Making Lab Data Lab results reviewed: Yes I reviewed the patient's lab results. Result diagrams: 11/10/21 22:38 11/10/21 22:38 Labs: Lab Results 11/10/21 11/10/21 11/10/21 Range/Units 21:29 21:29 21:29 WBC (4.8-10.8) X10*3/uL RBC (4.20-5.50) X10*6/uL Hgb (12.0-16.0) g/dl Hct (37.0-47.0) % MCV (80.0-98.0) fL MCH (27.0-33.0) pg MCHC (31.0-35.0) g/dl RDW (11.0-16.0) % Plt Count (160-400) X10*3/uL MPV (9.4-12.3) fL Immature Gran % (Auto) (0.0-0.4) % Neut % (Auto) (45-73) % Lymph % (Auto) (20-40) % Hardeman % (Auto) (2-11) % Eos % (Auto) (0-4) % Baso % (Auto) (0-2) % Lymph # (Auto) (1.2-4.9) X10*3/uL Hardeman # (Auto) (0.1-1.2) X10*3/uL Eos # (Auto) (0.0-0.4) X10*3/uL Baso # (Auto) (0.0-0.2) X10*3/uL Abs Immat Gran (auto) (0.00-0.03) X10*3/uL Absolute Neuts (auto) (2.0-8.3) x10*3/uL Absolute Nucleated RBC (0.0-0.012) X10*3/uL Nucleated RBC % (auto) (0.0-0.2) /100WBC Sodium (135-145) mmol/L Potassium (3.3-5.1) mmol/L Chloride (96-108) mmol/L Carbon Dioxide (22-29) mmol/L Anion Gap (12-20) BUN (9-16) mg/dL Creatinine (0.5-1.4) mg/dL Estim Creat Clear Calc Estimated GFR Random Glucose (60-115) mg/dL Calcium (8.4-10.2) mg/dL Total Bilirubin (0.0-1.0) mg/dL Direct Bilirubin (0.0-0.5) mg/dL AST (5-31) U/L ALT (0-31) U/L Alkaline Phosphatase (39-117) U/L Total Protein (6.5-8.0) g/dL Albumin (3.5-5.0) g/dL Lipase (8-78) U/L COVID-19 (MASON) Negative (Negative) COVID-19 Clin Com See Note Influenza Type A (HUONG) Negative (Negative) Influenza Type B (HUONG) Negative (Negative) Influenza A & B Note See Note S. pyogenes GrpA HUONG Negative (Negative) 11/10/21 11/10/21 Range/Units 22:38 22:38 WBC 11.3 H (4.8-10.8) X10*3/uL RBC 4.87 (4.20-5.50) X10*6/uL Hgb 14.2 (12.0-16.0) g/dl Hct 43.1 (37.0-47.0) % MCV 88.5 (80.0-98.0) fL MCH 29.2 (27.0-33.0) pg MCHC 32.9 (31.0-35.0) g/dl RDW 14.5 (11.0-16.0) % Plt Count 323 (160-400) X10*3/uL MPV 9.3 L (9.4-12.3) fL Immature Gran % (Auto) 0.5 H (0.0-0.4) % Neut % (Auto) 65.1 (45-73) % Lymph % (Auto) 22.6 (20-40) % Hardeman % (Auto) 9.0 (2-11) % Eos % (Auto) 2.6 (0-4) % Baso % (Auto) 0.2 (0-2) % Lymph # (Auto) 2.6 (1.2-4.9) X10*3/uL Hardeman # (Auto) 1.0 (0.1-1.2) X10*3/uL Eos # (Auto) 0.3 (0.0-0.4) X10*3/uL Baso # (Auto) 0.0 (0.0-0.2) X10*3/uL Abs Immat Gran (auto) 0.06 H (0.00-0.03) X10*3/uL Absolute Neuts (auto) 7.4 (2.0-8.3) x10*3/uL Absolute Nucleated RBC 0.000 (0.0-0.012) X10*3/uL Nucleated RBC % (auto) 0.0 (0.0-0.2) /100WBC Sodium 139 (135-145) mmol/L Potassium 4.5 (3.3-5.1) mmol/L Chloride 105 (96-108) mmol/L Carbon Dioxide 26 (22-29) mmol/L Anion Gap 13 (12-20) BUN 7 L (9-16) mg/dL Creatinine 0.76 (0.5-1.4) mg/dL Estim Creat Clear Calc 154.8 Estimated GFR > 60 Random Glucose 112 (60-115) mg/dL Calcium 9.0 (8.4-10.2) mg/dL Total Bilirubin 0.4 (0.0-1.0) mg/dL Direct Bilirubin 0.2 (0.0-0.5) mg/dL AST 21 (5-31) U/L ALT 29 (0-31) U/L Alkaline Phosphatase 98 (39-117) U/L Total Protein 7.4 (6.5-8.0) g/dL Albumin 4.0 (3.5-5.0) g/dL Lipase 15 (8-78) U/L COVID-19 (MASON) (Negative) COVID-19 Clin Com Influenza Type A (HUONG) (Negative) Influenza Type B (HUONG) (Negative) Influenza A & B Note S. pyogenes GrpA HUONG (Negative) Imaging Data Chest x-ray: Attestation: I personally reviewed and interpreted this imaging study as follows: Radiologist's impression: No acute cardiopulmonary findings. Discharge Plan Discharge Clinical Impression: Sore throat Patient Disposition: Home, Self-Care Instructions: Pharyngitis (ED) Prescriptions: No Action nacojdljbf-xyanzkujwfffl-icjr [Fioricet] 50-300-40 mg capsule 1 cap PO Q6H PRN (Reason: pain) Qty: 20 0RF cyclobenzaprine 10 mg tablet 10 mg PO TID PRN (Reason: muscle pain or spasm) Qty: 20 0RF prednisone 20 mg tablet 60 mg PO DAILY 7 Days Qty: 21 0RF amoxicillin-pot clavulanate 875-125 mg tablet 1 tab PO BID 10 Days Qty: 20 0RF fluconazole [Diflucan] 150 mg tablet 150 mg PO DAILY Qty: 1 0RF Rx Instructions: take after antibiotics famotidine [Pepcid] 20 mg tablet 20 mg PO BID 14 Days Qty: 28 0RF ondansetron HCl 4 mg tablet 4 mg PO Q8H PRN (Reason: nausea and vomiting) 4 Days Qty: 7 0RF omeprazole 40 mg capsule,delayed release(DR/EC) 40 mg PO DAILY 14 Days Qty: 14 0RF Referrals: Lavell Norris MD [Physician] - Physician,None [Primary Care Provider] -
[2021-11-10 22:43] LABS: MANUAL DIFF FLAG NO
[2021-11-10 22:44] LABS: Basophils Percent Auto 0.2 % (0-2); Eosinophils Absolute Auto 0.3 X10*3/uL (0.0-0.4); Eosinophils Percent Auto 2.6 % (0-4); Hematocrit 43.1 % (37.0-47.0); Hemoglobin 14.2 g/dl (12.0-16.0); Imm Gran Abs Auto 0.06 X10*3/uL (0.00-0.03); Imm Gran Pct Auto 0.5 % (0.0-0.4); Lymphocytes Absolute Auto 2.6 X10*3/uL (1.2-4.9); Lymphocytes Percent Auto 22.6 % (20-40); Mean Corpuscular HGB Conc 32.9 g/dl (31.0-35.0); Mean Corpuscular Hemoglobin 29.2 pg (27.0-33.0); Mean Corpuscular Volume 88.5 fL (80.0-98.0); Mean Platelet Volume 9.3 fL (9.4-12.3); Neutrophils Absolute Auto 7.4 x10*3/uL (2.0-8.3); Neutrophils Percent Auto 65.1 % (45-73); Platelet Count 323 X10*3/uL (160-400); Red Blood Count 4.87 X10*6/uL (4.20-5.50); Red Cell Distribution Width 14.5 % (11.0-16.0); White Blood Count 11.3 X10*3/uL (4.8-10.8)
[2021-11-10 23:05] LABS: Alanine Aminotransferase 29 U/L (0-31); Alkaline Phosphatase 98 U/L (39-117); Anion Gap 13 (12-20); Aspartate Amino Transferase 21 U/L (5-31); Bilirubin Direct 0.2 mg/dL (0.0-0.5); Bilirubin Total 0.4 mg/dL (0.0-1.0); Blood Urea Nitrogen 7 mg/dL (9-16); Carbon Dioxide 26 mmol/L (22-29); Chloride 105 mmol/L (96-108); Creatinine Clr Calc Pharmacy 154.8; Estimated Glomerular Filt Rate > 60; Glucose Random 112 mg/dL (60-115); Lipase 15 U/L (8-78); Potassium 4.5 mmol/L (3.3-5.1); Sodium 139 mmol/L (135-145); Total Protein 7.4 g/dL (6.5-8.0)
[2021-11-11 00:16] LABS: Appearance Urine CLEAR; Color Urine YELLOW; Glucose Urine UA NEG (NEG); Leukocyte Esterase Urine NEG (NEG); Nitrite Urine NEG (NEG); PH 6.5 (5.0-8.0); Urine Blood NEG (NEG); Urine Ketones NEG (NEG); Urine Protein NEG (NEG-TRACE)
== END 2021-11-11 00:02 | disposition home or self-care (01) ==
PROVIDERS: Emergency Provider Emergency Medicine
DX: J02.9 Acute pharyngitis, unspecified (principal); Z20.822 Contact with and (suspected) exposure to COVID-19; F17.200 Nicotine dependence, unspecified, uncomplicated; Z71.6 Tobacco abuse counseling; Z79.899 Other long term (current) drug therapy
CPT/HCPCS: 36415; 71045; 80048; 80076; 81003; 83690; 85025; 87502; 87635; 87651; 99284

== ENCOUNTER 2022-02-19 10:02 | Emergency (ER) | payer MEDICAID, SELFPAY ==
[2022-02-19 10:45] VITALS: BP 142/92; PULSE 99; RESP 18; TEMP 37.5; O2SAT 94; BMI 64.0
[2022-02-19 11:37] LABS: Strep A Nucleic Acid Negative (Negative)
[2022-02-19 11:46] LABS: COVID-19 Test Negative (Negative)
[2022-02-19 11:56] LABS: IDNOW Serial# 16C4AD1C; Influenza A Negative (Negative); Influenza B2 Negative (Negative)
--- NOTE | 2022-02-19 14:28 | ED.URI ---
HPI - URI/Sore Throat General Chief Complaint: Upper Respiratory Symptoms Stated Complaint: Cough/Losing voice Time Seen by Provider: 02/19/22 14:28 Source: patient Mode of arrival: ambulatory Limitations: no limitations History of Present Illness HPI Narrative: 51-year-old female with a history of asthma presents for cough, fevers, sore throat and ear pain. Patient also has a toothache in her back right lower molar. She was supposed to have a dental appointment today, but because of her symptoms, the dental appointment was pushed to head for the next 2 weeks. Patient has run out of her inhalers, she denies chest pain, shortness of breath, denies vomiting, or diarrhea. Related Data Previous Rx's Medication Instructions Recorded hmdgqqchpc-pzlbxjaftptsb-fckehbok 1 cap PO Q6H PRN pain #20 caps 06/09/20 50 mg-300 mg-40 mg capsule (Fioricet) cyclobenzaprine 10 mg tablet 10 mg PO TID PRN muscle pain or 05/10/21 spasm #20 tabs prednisone 20 mg tablet 60 mg PO DAILY 7 days #21 tabs 05/10/21 amoxicillin 875 mg-potassium 1 tab PO BID 10 days #20 tabs 09/14/21 clavulanate 125 mg tablet fluconazole 150 mg tablet 150 mg PO DAILY #1 tab 09/14/21 (Diflucan) famotidine 20 mg tablet (Pepcid) 20 mg PO BID 14 days #28 tabs 10/12/21 omeprazole 40 mg capsule,delayed 40 mg PO DAILY 14 days #14 caps 11/05/21 release ondansetron HCl 4 mg tablet 4 mg PO Q8H PRN nausea and 11/05/21 vomiting 4 days #7 tabs albuterol sulfate 90 mcg/actuation 2 puff inhalation Q4-6H PRN 02/19/22 aerosol inhaler shortness of breath or wheezing #6.7 grams amoxicillin 875 mg-potassium 1 tab PO BID 10 days #20 tabs 02/19/22 clavulanate 125 mg tablet Allergies Allergy/AdvReac Type Severity Reaction Status Date / Time naproxen [NAPROXEN] Allergy Mild VOMITING Verified 11/05/21 09:06 Review of Systems Constitutional: Constitutional: Denies body ache(s), Denies chills, Reports fatigue, Reports fever(s), Denies headache(s), Denies malaise and Denies weakness Eyes: Eyes: Denies diplopia ENT: Denies vertigo, Denies dizziness, Denies otalgia, Denies headache(s), Denies mouth pain, Reports nasal congestion, Reports nasal discharge, Reports post nasal drip, Denies sinus pain, Denies sinus pressure, Reports sore throat and Denies throat swelling Cardiovascular: Cardiovascular: Denies chest pain, Denies syncope, Denies leg edema, Denies lightheadedness, Denies Loss of Consciousness, Denies palpitations and Denies dyspnea Respiratory: Respiratory: Reports chest congestion, Reports cough and Denies dyspnea Gastrointestinal: Gastrointestinal: Denies abdominal pain, Denies hematochezia, Denies constipation, Denies diarrhea and Denies vomiting Musculoskeletal: Musculoskeletal: Reports no additional musculoskeletal complaints Neurologic: Denies confusion, Denies vertigo, Denies dizziness, Denies syncope, Denies headache(s) and Denies weakness Psychiatric: Psychiatric: Denies anxiety, Denies confusion and Denies depression Endocrine: Endocrine: Reports fatigue and Denies palpitations Allergic/Immunologic: Allergic/Immunologic: Denies throat swelling PMFSH Past Medical History Medical History Asthma COVID-19 Surgical History H/O knee surgery Social History Social History Alcohol intake: never Patient Tobacco Use Status: Current someday Tobacco user Advance Directives: No Advance Directives Information Provided: Yes Physical Exam Vital Signs: Vital Signs: Last Vital Signs Temp 99.5 F 02/19/22 10:45 Pulse 99 02/19/22 10:45 Resp 18 02/19/22 10:45 BP 142/92 H 02/19/22 10:45 Pulse Ox 94 02/19/22 10:45 O2 Del Method 02/19/22 10:45 BMI result Body Mass Index 64.0 Const: General: No confusion Nutritional Appearance: well nourished Orientation/consciousness: No confusion Limitations: no limitations HEENT: Head: Yes normal to inspection, Yes normocephalic and Yes atraumatic Ears: hearing grossly normal bilaterally, external ears normal, TM's normal bilaterally and EAC's normal General nose exam: Normal external nose present Face and sinus: Yes normal facial exam and Yes sinuses nontender Mouth: Normal oral and palatal mucosa present Teeth image: 1. avulsed tooth and tender to palp Throat: Yes posterior oropharynx abnormal (mildly erythematous) Eyes: Conjunctivae: conjunctivae normal Pupils: Equal, round and reactive pupils present EOM: EOMs intact bilaterally Neck: Neck: Yes full ROM, Yes no lymphadenopathy and Yes supple Resp: Effort & Inspection: normal respiratory effort and able to speak in complete sentences Auscultation: clear to auscultation bilaterally, no crackles, no rales, no rhonchi and no wheezes Cardio: Rate: regular rate Rhythm: regular rhythm Heart sounds: S1 normal heart sound present and S2 normal heart sound present GI: Inspection: Yes normal to inspection Palpation (GI): Soft to palpation, nontender, no guarding and not rigid Percussion: Yes normal to percussion Auscultation: normal bowel sounds Skin: General skin exam: no rashes or lesions noted Neuro: General: No confusion Cranial nerves: Yes Equal, round and reactive pupils present Extrem: General: Yes normal to inspection and Yes full ROM Psych: Appearance: grossly normal Affect: normal affect Attitude: cooperative Thought process: Normal thought process present Course Course Course Narrative: 31-year-old female with symptoms of upper respiratory infection and dental pain. patient has tooth number 32 avulsed. Lungs clear to auscultation bilaterally, no wheezes, without rales, rhonchi, patient tested negative for flu, COVID, strep represcribed patient's albuterol inhaler as she has run out, counseled her to take it every 4 hours for next 3-4 days while she is awake, counseled salt water gargles for her sore throat, prescribed Augmentin for her dental pain. Patient will follow-up with her dentist in 2 weeks. Gave return precautions, patient verbalized agreement and understanding of the plan MDM - URI/Sore Throat Lab Data Labs: Lab Results 02/19/22 02/19/22 02/19/22 Range/Units 11:21 11:21 11:21 COVID-19 (MASON) Negative (Negative) COVID-19 Clin Com See Note Influenza Type A (HUONG) Negative (Negative) Influenza Type B (HUONG) Negative (Negative) Influenza A & B Note See Note S. pyogenes GrpA HUONG Negative (Negative) Discharge Plan Discharge Clinical Impression: Dental abscess, Upper respiratory infection Patient Disposition: Home, Self-Care Instructions: Dental Abscess (ED), Upper Respiratory Infection (ED) Additional Instructions: please use your albuterol inhaler, 2 puffs every 4 hours while you are awake for the next 3-4 days. Please use salt water gargles, 1 tsp assault a couple warm water for 5 times a day. Please alternate Tylenol and ibuprofen for pain. Please take antibiotics for the next 10 days, this will treat any chest and throat infection is worthless her dental infection. Please follow-up with your dentist for your chipped tooth. Prescriptions: New amoxicillin-pot clavulanate 875-125 mg tablet 1 tab PO BID 10 Days Qty: 20 0RF albuterol sulfate 90 mcg/actuation HFA aerosol inhaler 2 puff inhalation Q4-6H PRN (Reason: shortness of breath or wheezing) Qty: 6.7 0RF No Action uvbxrfqgud-nvoxpcgxnmclc-hiqn [Fioricet] 50-300-40 mg capsule 1 cap PO Q6H PRN (Reason: pain) Qty: 20 0RF cyclobenzaprine 10 mg tablet 10 mg PO TID PRN (Reason: muscle pain or spasm) Qty: 20 0RF prednisone 20 mg tablet 60 mg PO DAILY 7 Days Qty: 21 0RF amoxicillin-pot clavulanate 875-125 mg tablet 1 tab PO BID 10 Days Qty: 20 0RF fluconazole [Diflucan] 150 mg tablet 150 mg PO DAILY Qty: 1 0RF Rx Instructions: take after antibiotics famotidine [Pepcid] 20 mg tablet 20 mg PO BID 14 Days Qty: 28 0RF ondansetron HCl 4 mg tablet 4 mg PO Q8H PRN (Reason: nausea and vomiting) 4 Days Qty: 7 0RF omeprazole 40 mg capsule,delayed release(DR/EC) 40 mg PO DAILY 14 Days Qty: 14 0RF Stand Alone Forms: Work/School Release Interventions: ED Discharge Assessment Last Done: 02/19/22 15:00 Discharge Date/Time: 02/19/22 15:01
== END 2022-02-19 15:01 | disposition home or self-care (01) ==
PROVIDERS: Emergency Provider Emergency Medicine
DX: K04.7 Periapical abscess without sinus (principal); J06.9 Acute upper respiratory infection, unspecified; R05.9 Cough, unspecified; R50.9 Fever, unspecified; Z20.822 Contact with and (suspected) exposure to COVID-19; Z79.899 Other long term (current) drug therapy
CPT/HCPCS: 87502; 87635; 87651; 99282; 99283

== ENCOUNTER 2022-07-14 02:12 | Emergency (ER) | payer MEDICAID, SELFPAY ==
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
[2022-07-14 02:22] VITALS: BP 150/80; PULSE 85
[2022-07-14 02:26] VITALS: BP 146/97; PULSE 108; RESP 16; TEMP 36.9; O2SAT 98; BMI 63.6
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
[2022-07-14] MEDS: Acetaminophen 325 MG TABLET 975 MG PO (02:35)
[2022-07-14 03:40] VITALS: BP 142/107; PULSE 98; RESP 17; TEMP 36.7; O2SAT 98
== END 2022-07-14 03:42 | disposition home or self-care (01) ==
PROVIDERS: Emergency Provider Emergency Medicine
DX: Z04.1 Encounter for examination and observation following transport accident (principal); M54.6 Pain in thoracic spine
CPT/HCPCS: 72070; 99283; 99284

== ENCOUNTER 2022-07-25 18:34 | Emergency (ER) | payer MEDICAID, SELFPAY ==
[2022-07-25 18:46] VITALS: BP 148/95; PULSE 87; RESP 18; O2SAT 97; BMI 63.6
--- NOTE | 2022-07-25 18:46 | ED.UPPEXIN ---
HPI - Extremity Injury (Upper) General Chief Complaint: Extremity Injury, Upper Stated Complaint: finger crushed, at work Time Seen by Provider: 07/25/22 19:59 Source: patient Mode of arrival: ambulatory Limitations: no limitations History of Present Illness HPI narrative: 32 yo right-hand dominant female presents to the ER for evaluation of right pinky pain after a door on a cart fell down on her finger. She was at work, she works at the [employer]. She reports pain with flexion of the pinky. She reports a history of dislocating his pinky in the past and has had issues with that being painful from time to time. She denies any numbness, weakness, tingling. No open wounds. MD complaint: injury to: right and finger Onset (ago): hour(s) Other Extremity Injury: right: fingers (Pinky finger) Other injuries: none Handedness: right Place: work Severity: moderate Severity scale (1-10): 6 Relieving factors: cold therapy Exacerbating factors: other (Movement and palpation) Context: direct blow Associated symptoms: denies other symptoms Related Data Previous Rx's Medication Instructions Recorded [id number]-[id number] 1 cap PO Q6H PRN pain #20 caps 06/09/20 50 mg-300 mg-40 mg capsule (Fioricet) cyclobenzaprine 10 mg tablet 10 mg PO TID PRN muscle pain or 05/10/21 spasm #20 tabs prednisone 20 mg tablet 60 mg PO DAILY 7 days #21 tabs 05/10/21 amoxicillin 875 mg-potassium 1 tab PO BID 10 days #20 tabs 09/14/21 clavulanate 125 mg tablet fluconazole 150 mg tablet 150 mg PO DAILY #1 tab 09/14/21 (Diflucan) famotidine 20 mg tablet (Pepcid) 20 mg PO BID 14 days #28 tabs 10/12/21 omeprazole 40 mg capsule,delayed 40 mg PO DAILY 14 days #14 caps 11/05/21 release ondansetron HCl 4 mg tablet 4 mg PO Q8H PRN nausea and 11/05/21 vomiting 4 days #7 tabs albuterol sulfate 90 mcg/actuation 2 puff inhalation Q4-6H PRN 02/19/22 aerosol inhaler shortness of breath or wheezing #6.7 grams amoxicillin 875 mg-potassium 1 tab PO BID 10 days #20 tabs 02/19/22 clavulanate 125 mg tablet acetaminophen 500 mg tablet 500 mg PO Q6H PRN fever or pain 07/14/22 #30 tabs cyclobenzaprine 10 mg tablet 10 mg PO TID PRN muscle spasm #7 07/14/22 tabs Allergies Allergy/AdvReac Type Severity Reaction Status Date / Time naproxen [NAPROXEN] Allergy Mild VOMITING Verified 11/05/21 09:06 Review of Systems Review of Systems: Constitutional: No Fever, No Chills Cardiovascular: No Chest Pain, No SOB Gastrointestinal: No Nausea, No Vomiting Musculoskeletal: +joint pain, No Myalgias Skin: No Skin Lesions, No rash Neuro: No Weakness, No Numbness Psych: + Anxiety/Panic Heme/Lymph: No Bruising PMFSH Past Medical History Medical History Asthma COVID-19 Surgical History H/O knee surgery Social History Social History Alcohol intake: never Patient Tobacco Use Status: Current someday Tobacco user Physical Exam Vital Signs: Vital Signs: Last Vital Signs Pulse 87 07/25/22 18:46 Resp 18 07/25/22 18:46 BP 148/95 H 07/25/22 18:46 Pulse Ox 97 07/25/22 18:46 O2 Del Method 07/25/22 18:46 BMI result Body Mass Index 63.6 Appearance: Alert. Oriented X3. No acute distress. HEENT: normal inspection CVS: Normal heart rate and rhythm. Pulses normal. Respiratory: No respiratory distress. Skin: Skin warm and dry. Normal skin color. Normal skin turgor. No rashes. Extremities: Mild generalized swelling of the dorsal aspect of the 5th digit without any open wounds. Tenderness of the entire finger, no point tenderness. Has some range of motion but with difficulty due to pain. Neurovascularly intact distally. Cap refill less than 3 seconds. Neuro: Oriented X 3. No motor deficit. No sensory deficit. Course Course Course Narrative: RME - 32 yo right hand dominant female presenting with right pinky pain after she had a door on a cart fell on her finger while working at the [employer] today. Pain with any movement. No numbness or tingling. No open wounds. XR pending. Reevaluation(s) Reevaluation #1: X-ray negative. Will provide finger splint for support. Stable for discharge home. Encouraged to follow up with [facility] give this is a work injury. Stable for DC Discharge Plan Discharge Clinical Impression: Contusion of finger Patient Disposition: Home, Self-Care Instructions: Contusion in Adults (ED) Additional Instructions: Your x-ray today did not show any broken bones. Recommend ice and taking Motrin Tylenol as needed for pain. Wear the splint as needed for pain and discomfort. Prescriptions: No Action [id number]-[id number]-ptjy [Fioricet] 50-300-40 mg capsule 1 cap PO Q6H PRN (Reason: pain) Qty: 20 0RF cyclobenzaprine 10 mg tablet 10 mg PO TID PRN (Reason: muscle pain or spasm) Qty: 20 0RF prednisone 20 mg tablet 60 mg PO DAILY 7 Days Qty: 21 0RF amoxicillin-pot clavulanate 875-125 mg tablet 1 tab PO BID 10 Days Qty: 20 0RF fluconazole [Diflucan] 150 mg tablet 150 mg PO DAILY Qty: 1 0RF Rx Instructions: take after antibiotics famotidine [Pepcid] 20 mg tablet 20 mg PO BID 14 Days Qty: 28 0RF ondansetron HCl 4 mg tablet 4 mg PO Q8H PRN (Reason: nausea and vomiting) 4 Days Qty: 7 0RF omeprazole 40 mg capsule,delayed release(DR/EC) 40 mg PO DAILY 14 Days Qty: 14 0RF amoxicillin-pot clavulanate 875-125 mg tablet 1 tab PO BID 10 Days Qty: 20 0RF albuterol sulfate 90 mcg/actuation HFA aerosol inhaler 2 puff inhalation Q4-6H PRN (Reason: shortness of breath or wheezing) Qty: 6.7 0RF acetaminophen 500 mg tablet 500 mg PO Q6H PRN (Reason: fever or pain) Qty: 30 0RF cyclobenzaprine 10 mg tablet 10 mg PO TID PRN (Reason: muscle spasm) Qty: 7 0RF Referrals: [facility] [Provider Group]
== END 2022-07-25 20:22 | disposition home or self-care (01) ==
PROVIDERS: Emergency Provider Emergency Medicine
DX: S60.051A Contusion of right little finger without damage to nail, initial encounter (principal); Y29.XXXA Contact with blunt object, undetermined intent, initial encounter; Y93.9 Activity, unspecified; Y92.9 Unspecified place or not applicable; Y99.9 Unspecified external cause status; Z79.899 Other long term (current) drug therapy
CPT/HCPCS: 73140; 99282; 99283

== ENCOUNTER 2023-09-14 23:01 | Emergency (ER) | payer MEDICAID, SELFPAY ==
[2023-09-14 23:11] VITALS: BP 164/118; PULSE 92; RESP 18; TEMP 36.6; O2SAT 97; BMI 64.1
[2023-09-15 02:11] VITALS: BP 110/66; PULSE 85; RESP 17; TEMP 36.6; O2SAT 95
[2023-09-15 05:12] VITALS: BP 150/98; PULSE 88; RESP 17; TEMP 36.7; O2SAT 97
--- NOTE | 2023-09-15 06:17 | PC.NURSE ---
Report given to Asuncion RN, pt awaiting MD evaluation.
--- NOTE | 2023-09-15 07:29 | ED_ITS ---
HPI - Back Pain/Injury General Chief Complaint: Back Pain/Injury Stated Complaint: lower back pain Time Seen by Provider: 09/15/23 06:32 Source: patient, RN notes reviewed and old records reviewed Mode of arrival: ambulatory History of Present Illness HPI Narrative: 33-year-old female past medical history of asthma presenting to the ED complaining of bilateral low back pain radiating to hips x few days. Admits to taking Tylenol yesterday without relief. Pain worse with palpation and movement. Denies known injury/trauma or fall, numbness/tingling, weakness, incontinence/retention, hematuria/dysuria, vaginal bleeding/discharge. MD elicited complaint: back pain Related Data Previous Rx's Medication Instructions Recorded [id number]-bmqtdnygqdywg-nginchnk 1 cap PO Q6H PRN pain #20 caps 06/09/20 50 mg-300 mg-40 mg capsule (Fioricet) cyclobenzaprine 10 mg tablet 10 mg PO TID PRN muscle pain or 05/10/21 spasm #20 tabs prednisone 20 mg tablet 60 mg (3 x 20 mg) PO DAILY 7 days 05/10/21 #21 tabs amoxicillin 875 mg-potassium 1 tab PO BID 10 days #20 tabs 09/14/21 clavulanate 125 mg tablet fluconazole 150 mg tablet 150 mg PO DAILY #1 tab 09/14/21 (Diflucan) famotidine 20 mg tablet (Pepcid) 20 mg PO BID 14 days #28 tabs 10/12/21 omeprazole 40 mg capsule,delayed 40 mg PO DAILY 14 days #14 caps 11/05/21 release ondansetron HCl 4 mg tablet 4 mg PO Q8H PRN nausea and 11/05/21 vomiting 4 days #7 tabs albuterol sulfate 90 mcg/actuation 2 puff inhalation Q4-6H PRN 02/19/22 aerosol inhaler shortness of breath or wheezing #6.7 grams amoxicillin 875 mg-potassium 1 tab PO BID 10 days #20 tabs 02/19/22 clavulanate 125 mg tablet acetaminophen 500 mg tablet 500 mg PO Q6H PRN fever or pain 07/14/22 #30 tabs cyclobenzaprine 10 mg tablet 10 mg PO TID PRN muscle spasm #7 07/14/22 tabs acetaminophen 500 mg tablet 500 mg PO Q6H PRN fever or pain 09/15/23 (Tylenol Extra Strength) #14 tabs cyclobenzaprine 5 mg tablet 5 mg PO Q8H PRN pain (scale score 09/15/23 7-10) 5 days #14 tabs lidocaine 5 % topical patch 1 patch topical DAILY PRN pain #30 09/15/23 (Lidoderm) ea Allergies Allergy/AdvReac Type Severity Reaction Status Date / Time naproxen [NAPROXEN] Allergy Mild VOMITING Verified 09/14/23 23:11 Review of Systems Review of Systems: Constitutional: No Fever, No Chills ENT/Mouth: No Ear Pain, No Nasal Congestion, No Swallowing Difficulty Cardiovascular: No Chest Pain, No SOB Respiratory: No Cough, No Sputum, No Wheezing Gastrointestinal: No Nausea, No Vomiting, No Diarrhea,No Abdominal pain Genitourinary: No Dysuria, No Urinary Frequency, No Hematuria, No Urinary Incontinence/retention, No Flank Pain Musculoskeletal: +joint pain, No Myalgias, No Joint Swelling Skin: No Skin Lesions, No rash Neuro: No Weakness, No Numbness, No Paresthesias Yes all other systems are reviewed and are negative Constitutional: Constitutional: Reports as per HPI Neurologic: Denies Sensory deficit (Neuro) [facility] Past Medical History Attestation statement: The following information was validated with the patient. Source: old records reviewed Medical History Asthma COVID-19 Surgical History H/O knee surgery Social History Social History Alcohol intake: never Patient Tobacco Use Status: Current someday Tobacco user Smoked in Last 30 Days: No Use of substances other than those prescribed or required for medical reasons: No Advance Directives: No Advance Directives Information Provided: Yes Patient : No Physical Exam Vital Signs: Vital Signs: Last Vital Signs Temp 98.1 F 09/15/23 07:47 Pulse 92 09/15/23 07:47 Resp 16 09/15/23 07:47 BP 140/88 H 09/15/23 07:47 Pulse Ox 98 09/15/23 07:47 O2 Del Method Room Air 09/15/23 07:47 BMI result Body Mass Index 64.1 Const: General: cooperative, healthy appearing and no acute distress Orientation/consciousness: patient oriented x3 Limitations: no limitations HEENT: Head: Yes normal to inspection and Yes atraumatic Ears: hearing grossly normal bilaterally General nose exam: Normal external nose present Face and sinus: Yes normal facial exam Eyes: General: appearance normal, both eyes and all related structures EOM: EOMs intact bilaterally Neck: Neck: Yes normal visual inspection and Yes no meningeal signs Resp: Effort & Inspection: normal respiratory effort and no respiratory distress Auscultation: clear to auscultation bilaterally Cardio: Rate: regular rate Heart sounds: S1 normal heart sound present and S2 normal heart sound present GI: Inspection: Yes normal to inspection Palpation (GI): Soft to palpation, nontender, no guarding and not rigid : General: Yes no CVA tenderness Back/Spine/Pelvis: Other: No midline cervical/thoracic/lumbar spinous tenderness/step-off or deformity. + bilateral lower lumbar MSK/paraspinal tenderness to palpation reproducing subjective complaint, greater on the left. No erythema/warmth or ecchymosis Back: no CVA tenderness Skin: Rashes: no rashes Wounds: no wounds Neuro: Other: Strength intact throughout. No saddle anesthesia. Sensation intact to light touch. Neurovascular intact distally General: patient oriented x3, gait normal, tone normal, moves all extremities, no meningeal signs and no focal motor deficits Cranial nerves: Yes CN's II-XII intact bilaterally Gait exam (Neuro): Normal gait present Motor exam (neuro): 5/5 motor strength present throughout Sensory Exam: No Sensory deficit (Neuro) Extrem: General: Yes normal to inspection Course Course Course Narrative: -[id number]--UA contaminated, will wait on initiating antibiotics until culture results. Urine negative Results discussed with patient including worrisome signs and symptoms and strict return precautions, and when to return to the emergency department. They verbalized understanding and feel safe for discharge at this time. Medications Administered Discontinued Medications Generic Name Dose Route Start Last Admin Trade Name Monique PRN Reason Stop Dose Admin Acetaminophen 650 mg 09/15/23 07:03 09/15/23 07:44 Acetaminophen 325 Mg Tablet PO 09/15/23 07:04 650 mg ONCE ONE Administration Cyclobenzaprine HCl 10 mg 09/15/23 07:03 09/15/23 07:44 Cyclobenzaprine Hcl 10 Mg Tablet PO 09/15/23 07:04 10 mg ONCE ONE Administration Medical Decision Making Medical Decision Making [facility] Narrative: 33-year-old female past medical history of asthma presenting to the ED complaining of bilateral low back pain radiating to hips x few days. On exam initially hypertensive, NAD, nontoxic appearing, abdomen soft/nontender, reproducible bilateral lower lumbar MSK tenderness as depicted above. No red flag symptoms, ambulating with steady gait. Concern for MSK pain/strain vs herniated disc. Low suspicion for cauda equina/cord compression, epidural abscess, renal stone, ovarian pathology or appendicitis/diverticulitis Plan: UA, , pain control Please refer to course for remaining clinical decision making, interpretation of labs/imaging results, and discussions with consultants and/or family members. Differential Diagnosis Differential Diagnoses: The differential diagnosis associated with the presentation includes As above Lab Data [facility] Lab Attestation statement: I reviewed the patient's lab results. Labs: Lab Results 09/15/23 09/15/23 Range/Units 08:00 08:01 Urine Color Yellow Urine Appearance Turbid Urine pH 5.5 (5.0-9.0) Ur Specific [place] 1.025 (1.005-1.025) Urine Protein Negative (Neg-Trace) mg/dL Urine Glucose (UA) Negative (Negative) mg/dL Urine Ketones Trace (Negative) mg/dL Urine Blood Negative (Negative) Urine Nitrite Negative (Negative) Ur Leukocyte Esterase Trace H (Negative) Urine RBC 0-2 (0-2) /HPF Urine WBC 11-20 H (0-5) /HPF Ur Squamous Epith Cells >20 (0-2) /HPF Urine Bacteria 4+ (None Seen) Hyaline Casts 3-5 (0-2) /LPF Urine Test NEGATIVE (NEGATIVE) Radiology Impression Discussion of test interpretation with radiology: I have reviewed the radiologist's reading. External Record Review External record reviewed: Inpatient record, Office record, Outpatient record, Prior outpatient labs, Prior outpatient radiology, Primary care record and Outside ED record Tests considered The following testing was considered but not selected: As above Prescription Management I considered prescription management with: Pain Medication Discharge Plan Discharge Clinical Impression: Low back pain Patient Disposition: Home, Self-Care Instructions: Acute Low Back Pain (ED) Additional Instructions: Your urine does not show infection at this time, we will follow your urine culture Your pain is likely musculoskeletal Flexeril is a muscle relaxer, take at night as it makes you drowsy, do not drive, drink alcohol, or operate machinery while taking it Lidoderm patches are numbing patches, apply to painful area In addition take Tylenol at home If symptoms persist or worsen, pain becomes unbearable, you developed urinary retention or incontinence, or weakness return to the ED Prescriptions: New acetaminophen [Tylenol Extra Strength] 500 mg tablet 500 mg PO Q6H PRN (Reason: fever or pain) Qty: 14 0RF lidocaine [Lidoderm] 5 % adhesive patch,medicated 1 patch topical DAILY MDD remove after 12 hours PRN (Reason: pain) Qty: 30 0RF Rx Instructions: leave on most painful area for up to 12 hrs cyclobenzaprine 5 mg tablet 5 mg PO Q8H PRN (Reason: pain (scale score 7-10)) 5 Days Qty: 14 0RF No Action [id number]-[id number] [Fioricet] 50-300-40 mg capsule 1 cap PO Q6H PRN (Reason: pain) Qty: 20 0RF cyclobenzaprine 10 mg tablet 10 mg PO TID PRN (Reason: muscle pain or spasm) Qty: 20 0RF prednisone 20 mg tablet 60 mg PO DAILY 7 Days Qty: 21 0RF amoxicillin-pot clavulanate 875-125 mg tablet 1 tab PO BID 10 Days Qty: 20 0RF fluconazole [Diflucan] 150 mg tablet 150 mg PO DAILY Qty: 1 0RF Rx Instructions: take after antibiotics famotidine [Pepcid] 20 mg tablet 20 mg PO BID 14 Days Qty: 28 0RF ondansetron HCl 4 mg tablet 4 mg PO Q8H PRN (Reason: nausea and vomiting) 4 Days Qty: 7 0RF omeprazole 40 mg capsule,delayed release(DR/EC) 40 mg PO DAILY 14 Days Qty: 14 0RF amoxicillin-pot clavulanate 875-125 mg tablet 1 tab PO BID 10 Days Qty: 20 0RF albuterol sulfate 90 mcg/actuation HFA aerosol inhaler 2 puff inhalation Q4-6H PRN (Reason: shortness of breath or wheezing) Qty: 6.7 0RF acetaminophen 500 mg tablet 500 mg PO Q6H PRN (Reason: fever or pain) Qty: 30 0RF cyclobenzaprine 10 mg tablet 10 mg PO TID PRN (Reason: muscle spasm) Qty: 7 0RF Referrals: Physician,None [Primary Care Provider] - Stand Alone Forms: Work/School Release Interventions: ED Discharge Assessment Last Done: 09/15/23 09:59 Discharge Date/Time: 09/15/23 10:00
[2023-09-15] MEDS: Cyclobenzaprine HCl 10 MG TABLET PO (07:44)
[2023-09-15] MEDS: Acetaminophen 325 MG TABLET 650 MG PO (07:44)
[2023-09-15 07:47] VITALS: BP 140/88; PULSE 92; RESP 16; TEMP 36.7; O2SAT 98
--- NOTE | 2023-09-15 07:50 | PC.NURSE ---
this RN resumed care of pt at this time. a&ox4. vss and up to date. pt c/o 04/12 lower back pain prior to medication administration. pt verbalizes pain radiates to the front causing cramping sensation when she urinates. denies any other urinary sx. medication administered per provider order. effectiveness pending. pt also verbalizing nausea - denies any episodes of vomiting. urine sample obtained/sent to lab. no sob/wob noted. respirations even and unlabored. call hurley placed within reach.
[2023-09-15 08:08] LABS: Appearance Urine Turbid; Color Urine Yellow; Glucose Urine UA Negative (Negative); Leukocyte Esterase Urine Trace (Negative); Nitrite Urine Negative (Negative); PH 5.5 (5.0-9.0); Specific Gravity - Urine 1.025 (1.005-1.025); UMIC TRIGGER UACC YES; Urine Blood Negative (Negative); Urine Ketones Trace mg/dL (Negative); Urine Protein Negative (Neg-Trace)
[2023-09-15 08:09] LABS: UPreg QC Valid YES; Urine Pregnancy NEGATIVE (NEGATIVE)
[2023-09-15 08:16] LABS: Bacteria Urine 4+ (None Seen); RBC Urine 0-2 /HPF (0-2); Squamous Epithelial Cell Urine >20 /HPF (0-2); UACC Culture Trigger YES
== END 2023-09-15 10:00 | disposition home or self-care (01) ==
PROVIDERS: Physician Assistant; Emergency Provider Emergency Medicine Emergency Medical Services
DX: M54.50 Low back pain, unspecified (principal); Z79.899 Other long term (current) drug therapy
CPT/HCPCS: 81001; 81025; 87086; 99283; 99284

== ENCOUNTER 2023-11-18 02:28 | Emergency (ER) | payer MEDICAID, SELFPAY ==
[2023-11-18 03:44] VITALS: BP 114/63; PULSE 89; RESP 16; TEMP 36.3; O2SAT 98; BMI 66.8
--- OUTSIDE RECORDS SUMMARY | 2023-11-18 06:45 | XMS_ITS | Continuity of Care Document ---
Author Organization [facility] Address [address] [place] [address]- Care Team Providers Care Measuring Clerk Name Role Phone Not on Staff, PCP Primary Care Physician Unavail able Encounter [facility] Date(s): 07/31/20 - 08/01/[address] [address]- Discharge Disposition: A-D/C Walkout Attending Physician: Gonzalez Jones MD Admitting Physician: Gonzalez Jones MD Referring Physician: Not on Staff, Referring MD Allergies, Adverse Reactions, Alerts Substance Reaction Severity Status naproxen Active Lactose Active Medications control-implant Arm control-implant Arm, Refills 0, Maintenance, 06/03/19 16:06:00 EDT, Compound Start Date: 06/03/19 Status: Ordered Clindamycin 300 mg, By Mouth, 4 times a day, Maintenance, 06/03/19 16:15:21 EDT Start Date: 06/03/19 Status: Ordered Ibuprofen Refills 0, Maintenance, 06/15/19 13:53:41 EST Start Date: 06/15/19 Status: Ordered Lamictal Tablet By Mouth, Refills 0, Maintenance, 07/31/20 23:16:00 EST, Partial fill upon patient request if the prescription is for a schedule II opioid drug. Start Date: 07/31/20 Status: Ordered Zoloft 50 mg oral tablet 1 tablet = 50 mg, By Mouth, Daily, 0 Refills, Maintenance, 07/31/20 23:16:00 EST, Partial fill uponpatient request if the prescription is for a schedule II opioid drug. Start Date: 07/31/20 Status: Ordered Vital Signs Most recent to oldest [Reference Range]: 1 2 Height 158 cm (07/31/20 11:15 PM) 158 cm (07/31/20 11:13 PM) Weight 127 kg (12/29/20 11:15 PM) 127 kg (07/31/20 11:13 PM) Oxygen Saturation [94-100 %] 98 % (07/31/20 11:13 PM) Pulse Rate [55-90 bpm] 87 bpm (07/31/20 11:13 PM) Body Mass Index [18.5-24.99] 50.87 *>HHI* (07/31/20 11:13 PM) Blood Pressure [90-138/55-84 mm Hg] 139/ 87mm Hg *H* (07/31/20 11:13 PM) Respiratory Rate [16-30 br/min] 16 br/mi n (07/31/20 11:13 PM) Temperature [96.8-100.4 DegF] 97.4 DegF (07/31/20 11:13 PM) Mode of Delivery (Oxygen) Room air (07/31/20 11:13 PM) Blood pressure sites Arm, right (07/31/20 11:13 PM) Temperature Route Temporal (07/31/20 11:13 PM) Dry Weight 127 kg (07/31/20 11:15 PM) 127 kg (07/31/20 11:13 PM)
--- OUTSIDE RECORDS SUMMARY | 2023-11-18 06:45 | XMS_ITS | Continuity of Care Document ---
Author Organization [facility] Address [address] [place] [id number]- Care Team Providers Care Boom Man Name Role Phone Not on Staff, PCP Primary Care Physician Unavail able Encounter [facility] Date(s): 07/31/20 - 08/01/[address] [address]- Discharge Disposition: A-D/C Walkout Attending Physician: Not on Staff, Attending MD Admitting Physician: Not on Staff, Admitting MD Referring Physician: Not on Staff, Referring [...] Most recent to oldest [Reference Range]: 1 Oxygen Saturation [94-100 %] 99 % (07/31/20 9:17 PM) Pulse Rate [55-90 bpm] 104 bpm *H* (07/31/20 9:17 PM) Blood Pressure [90-138/55-84 mm Hg] 133/ 95mm Hg (07/31/20 9:17 PM) Respiratory Rate [16-30 br/min] 16 br/mi n (07/31/20 9:17 PM) Temperature [96.8-100.4 DegF] 98.5 DegF (07/31/20 9:17 PM) Mode of Delivery (Oxygen) Room air (07/31/20 9:17 PM) Blood pressure sites Arm, right (07/31/20 9:17 PM) Temperature Route Oral (07/31/20 9:17 PM)
--- NOTE | 2023-11-18 07:45 | ED_ITS ---
HPI - Eye Problem General Chief complaint: Eye Problems Stated complaint: eye swollen Time Seen by Provider: 11/18/23 06:43 Source: patient Mode of arrival: ambulatory Limitations: no limitations History of Present Illness HPI Narrative: This is a 33-year-old female history of obesity presenting to the emergency department for evaluation of bilateral red eyes that started last night, she reports that they sting. She does not feel like there is anything in it. She reports they have also been watering particularly this morning. She denies fevers, chills, headache, vision changes, dizziness, contact use, recent illness, foreign body sensation, pain with eye movements, nausea, vomiting. Denies trauma to the eye Related Data Previous Rx's ?Medication ?Instructions ?Recorded cdscvpmqtf-olsjbrugziltt-lhrawsmc 1 cap PO Q6H PRN pain #20 caps 06/09/20 50 mg-300 mg-40 mg capsule (Fioricet) cyclobenzaprine 10 mg tablet 10 mg PO TID PRN muscle pain or 05/10/21 spasm #20 tabs prednisone 20 mg tablet 60 mg (3 x 20 mg) PO DAILY 7 days 05/10/21 #21 tabs amoxicillin 875 mg-potassium 1 tab PO BID 10 days #20 tabs 09/14/21 clavulanate 125 mg tablet fluconazole 150 mg tablet 150 mg PO DAILY #1 tab 09/14/21 (Diflucan) famotidine 20 mg tablet (Pepcid) 20 mg PO BID 14 days #28 tabs 10/12/21 omeprazole 40 mg capsule,delayed 40 mg PO DAILY 14 days #14 caps 11/05/21 release ondansetron HCl 4 mg tablet 4 mg PO Q8H PRN nausea and 11/05/21 vomiting 4 days #7 tabs albuterol sulfate 90 mcg/actuation 2 puff inhalation Q4-6H PRN 02/19/22 aerosol inhaler shortness of breath or wheezing #6.7 grams amoxicillin 875 mg-potassium 1 tab PO BID 10 days #20 tabs 02/19/22 clavulanate 125 mg tablet acetaminophen 500 mg tablet 500 mg PO Q6H PRN fever or pain 07/14/22 #30 tabs cyclobenzaprine 10 mg tablet 10 mg PO TID PRN muscle spasm #7 07/14/22 tabs acetaminophen 500 mg tablet 500 mg PO Q6H PRN fever or pain 09/15/23 (Tylenol Extra Strength) #14 tabs cyclobenzaprine 5 mg tablet 5 mg PO Q8H PRN pain (scale score 09/15/23 7-10) 5 days #14 tabs lidocaine 5 % topical patch 1 patch topical DAILY PRN pain #30 09/15/23 (Lidoderm) ea erythromycin 5 mg/gram (0.5 %) eye 1 appl ophthalmic (eye) TID 5 days 11/18/23 ointment #3.5 grams Allergies Allergy/AdvReac Type Severity Reaction Status Date / Time naproxen [NAPROXEN] Allergy Mild VOMITING Verified 11/18/23 03:46 Review of Systems Review of Systems: Constitutional : No Weight loss, No Fever, No Chills, No Fatigue, No Malaise ENT/Mouth : No sore throat, No Rhinorrhea Eyes: No Eye Pain, No Swelling, + Redness Cardiovascular : No Chest Pain, No SOB, No Dyspnea on Exertion, No Orthopnea, No Edema, No Palpitations Respiratory : No Cough, No Sputum, No Wheezing Gastrointestinal : No Nausea, No Vomiting, No Diarrhea, No Constipation, No abdominal Pain, No Hematochezia, No Melena Genitourinary : No Dysuria, No Urinary Frequency, No Hematuria, Musculoskeletal : No joint pain, No Myalgias, No Joint Swelling Skin : No Skin Lesions, No rash Neuro : No Weakness, No Numbness, No Dizziness, No Headache Psych : No Anxiety/Panic, No Depression All other systems reviewed and are negative Yes all other systems are reviewed and are negative [facility] Past Medical History Attestation statement: The following information was validated with the patient. Source: old records reviewed and nursing notes reviewed Medical History Asthma COVID-19 Surgical History H/O knee surgery Social History Social History Alcohol intake: never Patient Tobacco Use Status: Current someday Tobacco user Advance Directives: No Advance Directives Information Provided: No Physical Exam Vital Signs: Vital Signs: Last Vital Signs Temp 97.4 F 11/18/23 03:44 Pulse 89 11/18/23 03:44 Resp 16 11/18/23 03:44 BP 114/63 11/18/23 03:44 Pulse Ox 98 11/18/23 03:44 O2 Del Method Room Air 11/18/23 03:44 BMI result Body Mass Index 66.8 vss Appearance: Alert.? Oriented X3.? No acute distress.? Head: Normocephalic, atraumatic, no step-offs or deformities Eyes: Pupils equal, round and reactive to light.? ENT: Pharynx normal.? Extraocular movements intact and pain-free. Bilateral conjunctival injection. Neck: Normal inspection.? Neck supple.? CVS: Normal heart rate and rhythm.? Pulses normal.? Respiratory: No respiratory distress.? Breath sounds normal.? Abdomen: Soft and nontender.? Skin: Skin warm and dry.? Normal skin color.? Normal skin turgor.? Extremities 5/5 strength to bilateral upper and lower extremities Neuro: Oriented X 3.? No motor deficit.? No sensory deficit. CN 2-12 intact Course Reevaluation(s) Reevaluation #1: Educated patient on diagnosis and treatment plan, answered all question, patient verbalizes understanding. At this time patient will be discharged home, advised to return with new or worsening symptoms. Educated on worrisome signs and symptoms and when to return. At this time I feel comfortable discharge home. Time: 07:49 Medical Decision Making Medical Decision Making [facility] Narrative: [id number] 33-year-old female presents with bilateral eye redness since yesterday Physical Extraocular movements intact and pain-free. Bilateral conjunctival injection. History and physical exam concerning for bacterial versus viral conjunctivitis. Unlikely globe rupture, acute closed angle glaucoma, wet macular degeneration, corneal abrasion or ulcer, foreign body. I do not suspect stroke posterior stroke Visual acuity at the bedside intact, patient able to read phone, Signs across the room. Plan at this time will discharge patient with erythromycin Differential Diagnosis Differential Diagnoses: The differential diagnosis associated with the pr esentation includes History and physical exam concerning for bacterial versus viral conjunctivitis. Unlikely globe rupture, acute closed angle glaucoma, wet macular degeneration, corneal abrasion or ulcer, foreign body. I do not suspect stroke posterior stroke Admission/Observation Consideration of admission/observation: Escalation of care including admission/observation considered Unlikely External Record Review External record reviewed: Inpatient record, Office record, Outpatient record, Prior outpatient labs, Prior outpatient radiology, Primary care record and Outside ED record Chronic Conditions Patient?s care impacted by: Other (Obesity, asthma) Discharge Plan Discharge Clinical Impression: Bacterial conjunctivitis Patient Disposition: Home, Self-Care Instructions: Conjunctivitis (ED) Additional Instructions: Take your medications as prescribed. If you were prescribed antibiotics today, it is important that you take your medication to their entirety, do not skip any doses, do not finish them early. Follow-up with your primary care provider this week. Return to the emergency department with new or worsening symptoms. Such as fevers, chills, chest pain, shortness of breath, nausea, vomiting, dizziness, headache, vision changes, lethargy In case of emergency call 911 Prescriptions: New erythromycin 5 mg/gram (0.5 %) ointment 1 appl ophthalmic (eye) TID 5 Days Qty: 3.5 0RF No Action ycwajsvtfj-xlvehettuqxwq-widx [Fioricet] 50-300-40 mg capsule 1 cap PO Q6H PRN (Reason: pain) Qty: 20 0RF cyclobenzaprine 10 mg tablet 10 mg PO TID PRN (Reason: muscle pain or spasm) Qty: 20 0RF prednisone 20 mg tablet 60 mg PO DAILY 7 Days Qty: 21 0RF amoxicillin-pot clavulanate 875-125 mg tablet 1 tab PO BID 10 Days Qty: 20 0RF fluconazole [Diflucan] 150 mg tablet 150 mg PO DAILY Qty: 1 0RF Rx Instructions: take after antibiotics famotidine [Pepcid] 20 mg tablet 20 mg PO BID 14 Days Qty: 28 0RF ondansetron HCl 4 mg tablet 4 mg PO Q8H PRN (Reason: nausea and vomiting) 4 Days Qty: 7 0RF omeprazole 40 mg capsule,delayed release(DR/EC) 40 mg PO DAILY 14 Days Qty: 14 0RF amoxicillin-pot clavulanate 875-125 mg tablet 1 tab PO BID 10 Days Qty: 20 0RF albuterol sulfate 90 mcg/actuation HFA aerosol inhaler 2 puff inhalation Q4-6H PRN (Reason: shortness of breath or wheezing) Qty: 6.7 0RF acetaminophen 500 mg tablet 500 mg PO Q6H PRN (Reason: fever or pain) Qty: 30 0RF cyclobenzaprine 10 mg tablet 10 mg PO TID PRN (Reason: muscle spasm) Qty: 7 0RF acetaminophen [Tylenol Extra Strength] 500 mg tablet 500 mg PO Q6H PRN (Reason: fever or pain) Qty: 14 0RF lidocaine [Lidoderm] 5 % adhesive patch,medicated 1 patch topical DAILY MDD remove after 12 hours PRN (Reason: pain) Qty: 30 0RF Rx Instructions: leave on most painful area for up to 12 hrs cyclobenzaprine 5 mg tablet 5 mg PO Q8H PRN (Reason: pain (scale score 7-10)) 5 Days Qty: 14 0RF Referrals: Physician,None [Primary Care Provider] - 2 days Stand Alone Forms: Work/School Release Print Language: Prydeinig
[2023-11-18 08:03] VITALS: BP 129/90; PULSE 88; RESP 18; TEMP 36.6; O2SAT 98
== END 2023-11-18 08:03 | disposition home or self-care (01) ==
PROVIDERS: Emergency Provider Emergency Medicine
DX: H10.33 Unspecified acute conjunctivitis, bilateral (principal)
CPT/HCPCS: 99282; 99283

== ENCOUNTER 2024-04-18 19:50 | Inpatient (IN) | payer MEDICAID, OTHER, SELFPAY ==
[2024-04-18 19:57] VITALS: BP 176/86; PULSE 130; RESP 20; TEMP 37.7; O2SAT 96; BMI 63.0
--- NOTE | 2024-04-18 20:06 | ED_ITS ---
HPI - Psych General Chief Complaint: Psychiatric Symptoms Stated Complaint: Psych hx paranoia, visual & auditory hallucination Time Seen by Provider: 04/18/24 19:57 Source: patient, EMS and old records reviewed Mode of arrival: EMS Limitations: other (altered) History of Present Illness ED Provider: STEVE HPI Narrative: 34 yo female with PMH of obesity and possible unknown mental illness who was found sitting in her car acting erratic and responding to external and internal stimuli, she is here not really talking and calling people Jenni then throwing up the peace sign. She is not on a section 12 at this time. MD complaint: hallucinations Onset (ago): unknown Duration: constant Relieving factors: none Exacerbating factors: none Associated psychiatric symptoms: none Associated symptoms: denies other symptoms Treatments prior to arrival: placed on mental health hold Related Data Previous Rx's ?Medication ?Instructions ?Recorded jyauzjrnwf-[id number]-[id number] 1 cap PO Q6H PRN pain #20 caps 06/09/20 50 mg-300 mg-40 mg capsule (Fioricet) cyclobenzaprine 10 mg tablet 10 mg PO TID PRN muscle pain or 05/10/21 spasm #20 tabs prednisone 20 mg tablet 60 mg (3 x 20 mg) PO DAILY 7 days 05/10/21 #21 tabs amoxicillin 875 mg-potassium 1 tab PO BID 10 days #20 tabs 09/14/21 clavulanate 125 mg tablet fluconazole 150 mg tablet 150 mg PO DAILY #1 tab 09/14/21 (Diflucan) famotidine 20 mg tablet (Pepcid) 20 mg PO BID 14 days #28 tabs 10/12/21 omeprazole 40 mg capsule,delayed 40 mg PO DAILY 14 days #14 caps 11/05/21 release ondansetron HCl 4 mg tablet 4 mg PO Q8H PRN nausea and 11/05/21 vomiting 4 days #7 tabs albuterol sulfate 90 mcg/actuation 2 puff inhalation Q4-6H PRN 02/19/22 aerosol inhaler shortness of breath or wheezing #6.7 grams amoxicillin 875 mg-potassium 1 tab PO BID 10 days #20 tabs 02/19/22 clavulanate 125 mg tablet acetaminophen 500 mg tablet 500 mg PO Q6H PRN fever or pain 07/14/22 #30 tabs cyclobenzaprine 10 mg tablet 10 mg PO TID PRN muscle spasm #7 07/14/22 tabs acetaminophen 500 mg tablet 500 mg PO Q6H PRN fever or pain 09/15/23 (Tylenol Extra Strength) #14 tabs cyclobenzaprine 5 mg tablet 5 mg PO Q8H PRN pain (scale score 09/15/23 7-10) 5 days #14 tabs lidocaine 5 % topical patch 1 patch topical DAILY PRN pain #30 09/15/23 (Lidoderm) ea erythromycin 5 mg/gram (0.5 %) eye 1 appl ophthalmic (eye) TID 5 days 11/18/23 ointment #3.5 grams Allergies Allergy/AdvReac Type Severity Reaction Status Date / Time naproxen [NAPROXEN] Allergy Mild VOMITING Verified 04/18/24 20:07 Review of Systems Review of Systems: ROS unable to be obtained due to delusions PMFSH Past Medical History Attestation statement: The following information was validated with the patient. Source: old records reviewed Medical History Asthma COVID-19 Surgical History H/O knee surgery Social History Social History Unable to assess alcohol history related to: Refusing to respond Alcohol intake: never Patient Tobacco Use Status: Current someday Tobacco user Use of substances other than those prescribed or required for medical reasons: Refusing to respond Do you have a plan to hurt others: No Plan Physical Exam Vital Signs: Vital Signs: Last Vital Signs Temp 99.8 F 04/18/24 19:57 Pulse 130 H 04/18/24 19:57 Resp 20 04/18/24 19:57 BP 176/86 H 04/18/24 19:57 Pulse Ox 96 04/18/24 19:57 O2 Del Method Room Air 04/18/24 19:57 BMI result Body Mass Index 63.0 Appearance: Alert. is not speaking but is talking to people named Jenni, throwing the peace sign out then throwing her hands up to the john, disheveled, mild acute distress. Eyes: Pupils equal, round and reactive to light. ENT: Pharynx lips are dry Neck: Normal inspection. Neck supple. CVS: Pulses normal. Respiratory: No respiratory distress. Abdomen: no rash. no trauma Skin: Skin warm and dry. Normal skin color. Extremities: No lower extremity edema. Neuro: is not answering questions, moves all extremities cannot perform CN exam Course Course Course Narrative: additional zyprexa ordered signed out to Dr. Johnson pending labs Medications Administered Discontinued Medications Generic Name Dose Route Start Last Admin Trade Name Freq PRN Reason Stop Dose Admin Lorazepam 2 mg 04/18/24 19:58 04/18/24 20:10 Lorazepam 1 Mg Tablet PO 04/18/24 19:59 2 mg ONCE ONE Administration Olanzapine 5 mg 04/18/24 19:58 04/18/24 20:10 Olanzapine 5 Mg Tablet PO 04/18/24 19:59 5 mg ONCE ONE Administration Olanzapine 5 mg 04/18/24 20:39 04/18/24 20:55 Olanzapine Odt 10 Mg Tab.Rapdis TRANSLINGU 04/18/24 20:40 5 mg ONCE ONE Administration Medical Decision Making Medical Decision Making MDM Narrative: 34 yo female here disheveled responding to internal stimuli we have not seen her for this before but family reported to EMS she has hx of mental illness at this time I am going to order labs, tox screen and then refer to CARE team, she was placed on S12 on arrival. PO ativan and zyprexa ordered Differential Diagnosis Differential Diagnoses: The differential diagnosis associated with the presentation includes delusions, psychosis, drug abuse Admission/Observation Consideration of admission/observation: Escalation of care including admission/observation considered physician observation started at 813pm pending labs and CARE team Lab Data MDM Lab Attestation statement: I reviewed the patient's lab results. Independent Historian Clinical information obtained from an independent historian. History obtained from or confirmed by: EMS External Record Review External record reviewed: Inpatient record Discharge Plan Discharge Clinical Impression: Acute psychosis Patient Disposition: Still a Patient Prescriptions: No Action wgbuactsfq-zmziqekmvxeuc-frvx [Fioricet] 50-300-40 mg capsule 1 cap PO Q6H PRN (Reason: pain) Qty: 20 0RF cyclobenzaprine 10 mg tablet 10 mg PO TID PRN (Reason: muscle pain or spasm) Qty: 20 0RF prednisone 20 mg tablet 60 mg PO DAILY 7 Days Qty: 21 0RF amoxicillin-pot clavulanate 875-125 mg tablet 1 tab PO BID 10 Days Qty: 20 0RF fluconazole [Diflucan] 150 mg tablet 150 mg PO DAILY Qty: 1 0RF Rx Instructions: take after antibiotics famotidine [Pepcid] 20 mg tablet 20 mg PO BID 14 Days Qty: 28 0RF ondansetron HCl 4 mg tablet 4 mg PO Q8H PRN (Reason: nausea and vomiting) 4 Days Qty: 7 0RF omeprazole 40 mg capsule,delayed release(DR/EC) 40 mg PO DAILY 14 Days Qty: 14 0RF amoxicillin-pot clavulanate 875-125 mg tablet 1 tab PO BID 10 Days Qty: 20 0RF albuterol sulfate 90 mcg/actuation HFA aerosol inhaler 2 puff inhalation Q4-6H PRN (Reason: shortness of breath or wheezing) Qty: 6.7 0RF acetaminophen 500 mg tablet 500 mg PO Q6H PRN (Reason: fever or pain) Qty: 30 0RF cyclobenzaprine 10 mg tablet 10 mg PO TID PRN (Reason: muscle spasm) Qty: 7 0RF erythromycin 5 mg/gram (0.5 %) ointment 1 appl ophthalmic (eye) TID 5 Days Qty: 3.5 0RF acetaminophen [Tylenol Extra Strength] 500 mg tablet 500 mg PO Q6H PRN (Reason: fever or pain) Qty: 14 0RF lidocaine [Lidoderm] 5 % adhesive patch,medicated 1 patch topical DAILY MDD remove after 12 hours PRN (Reason: pain) Qty: 30 0RF Rx Instructions: leave on most painful area for up to 12 hrs cyclobenzaprine 5 mg tablet 5 mg PO Q8H PRN (Reason: pain (scale score 7-10)) 5 Days Qty: 14 0RF Interventions: [place]-Suicide Risk Severity Scale Last Done: 04/18/24 20:07 Print Language: Urdu
[2024-04-18] MEDS: OLANZapine 5 MG TABLET PO (20:10)
[2024-04-18] MEDS: LORazepam 1 MG TABLET 2 MG PO (20:10)
[2024-04-18] MEDS: OLANZapine ODT 10 MG TAB.RAPDIS 5 MG TRANSLINGU (20:55)
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
--- NOTE | 2024-04-18 22:37 | MHC.EDTECH ---
this tech with help from another tech attempted to draw blood, pt's arm jumped when poked, needle came out, pt then refused labs, RN made aware
--- NOTE | 2024-04-18 23:43 | MHC.EDTECH ---
this PCT attempted to draw labs patient refused
[2024-04-19] VITALS (9 sets, daily range): BP systolic 111–134; BP diastolic 62–96; PULSE 84–102; RESP 15–20; TEMP 36.4–36.9; O2SAT 95–99
--- NOTE | 2024-04-19 | ECG_ITS ---
Test Reason : CHECK QTC Blood Pressure : / mmHG Vent. Rate : 099 BPM Atrial Rate : 099 BPM P-R Int : 148 ms QRS Dur : 072 ms QT Int : 350 ms P-R-T Axes : 004 -02 -13 degrees QTc Int : 449 ms Normal sinus rhythm Inferior infarct , age undetermined Abnormal ECG No previous ECGs available Referred By: Deanna Lang Electronically Signed By:KRISTEN CHENG
--- NOTE | 2024-04-19 00:13 | PC.NURSE ---
Patient belongings located in C5
--- NOTE | 2024-04-19 04:18 | PC.NURSE ---
unable to complete med list, pt unaware of meds and external list not populating.
[2024-04-19 04:38] LABS: Appearance Urine Clear; Color Urine Yellow; Glucose Urine UA Negative (Negative); Leukocyte Esterase Urine Negative (Negative); Nitrite Urine Negative (Negative); PH 5.5 (5.0-9.0); Specific Gravity - Urine 1.015 (1.005-1.025); Urine Blood Negative (Negative); Urine Ketones 40 mg/dL (Negative); Urine Protein Negative (Neg-Trace)
[2024-04-19 04:39] LABS: UPreg QC Valid YES; Urine Pregnancy NEGATIVE (NEGATIVE)
[2024-04-19 04:51] LABS: Amphetamine Screen Urine Not Detected (Not Detect); Barbiturates, Urine Not Detected (Not Detect); Benzodiazepines Screen Urine Not Detected (Not Detect); Buprenorphine Scr Not Detected (Not Detect); Cannabinoid Screen Urine POSITIVE (Not Detect); Cocaine Screen Urine Not Detected (Not Detect); Fentanyl, urine Not Detected (Not Detect); Methadone Screen, Urine Not Detected (Not Detect); Opiate Screen Urine Not Detected (Not Detect); Oxycodone Screen Urine Not Detected (Not Detect); Phencyclidine Screen Urine Not Detected (Not Detect)
--- NOTE | 2024-04-19 08:14 | PC.NURSE ---
Spoke with Thu in medical records at [facility] , stating if a faxed release of info is signed and faxed to [phone] they will fax over patients medications. Patient oob ambulating in hallway. Patient stating that she takes trazodone and lisinopril
--- NOTE | 2024-04-19 08:40 | PC.NURSE ---
pt is agreeable at this time to get her blood work and EKG done
[2024-04-19 08:49] LABS: MANUAL DIFF FLAG NO
[2024-04-19 08:50] LABS: Basophils Percent Auto 0.3 % (0-2); Eosinophils Absolute Auto 0.2 X10*3/uL (0.0-0.4); Eosinophils Percent Auto 1.9 % (0-4); Hemoglobin 13.8 g/dl (12.0-16.0); Imm Gran Abs Auto 0.05 X10*3/uL (0.00-0.03); Imm Gran Pct Auto 0.4 % (0.0-0.4); Lymphocytes Absolute Auto 3.2 X10*3/uL (1.2-4.9); Lymphocytes Percent Auto 26.6 % (20-40); Mean Corpuscular HGB Conc 33.7 g/dl (31.0-35.0); Mean Corpuscular Hemoglobin 29.4 pg (27.0-33.0); Mean Corpuscular Volume 87.4 fL (80.0-98.0); Mean Platelet Volume 9.3 fL (9.4-12.3); Monocytes Percent Auto 8.3 % (2-11); Neutrophils Absolute Auto 7.6 x10*3/uL (2.0-8.3); Neutrophils Percent Auto 62.5 % (45-73); Platelet Count 296 X10*3/uL (160-400); Red Blood Count 4.69 X10*6/uL (4.20-5.50); Red Cell Distribution Width 15.4 % (11.0-16.0); White Blood Count 12.1 X10*3/uL (4.8-10.8)
[2024-04-19 09:03] LABS: Anion Gap 12 (12-20); Blood Urea Nitrogen 5 mg/dL (9-16); Calcium 8.8 mg/dL (8.4-10.2); Carbon Dioxide 23 mmol/L (22-29); Chloride 111 mmol/L (96-108); Creatinine Clr Calc Pharmacy 141.6; Estimated Glomerular Filt Rate > 60; Glucose Random 143 mg/dL (60-115); Potassium 3.2 mmol/L (3.3-5.1); Sodium 143 mmol/L (135-145)
[2024-04-19] MEDS: Acetaminophen 325 MG TABLET 650 MG PO (09:04)
--- NOTE | 2024-04-19 10:07 | PC.NURSE ---
pt is pacing around through the unit, will laugh out inappropriately at times also spat on the door handle of the laundry room and the lockers, but at this time pt is redirectable , pt is offered medications but is refusing-states i don't like how it makes me feel, i feel like i am drunk and i don't like either one of them. This rn asked what medication pt was taking, pt responded trazadone and limictal or maybe lisinopril, pt did finally sign the release form and it was faxed over to [facility]
[2024-04-19 10:15] LABS: Influenza A PCR NEGATIVE (Negative); Influenza B PCR NEGATIVE (Negative); Resp Syncy Virus RNA Qual PCR NEGATIVE (Negative); SARS COV2 PCR INHOUSE NEGATIVE (Negative)
[2024-04-19] MEDS: LORazepam 1 MG TABLET 2 MG PO ×2 (10:52→17:12)
[2024-04-19] MEDS: OLANZapine 10 MG VIAL IM (11:15)
--- NOTE | 2024-04-19 11:15 | PC.NURSE ---
pt getting out of control, threatening staff, throwing her clothes, slamming the doors, unable to follow commands at this time pt given zyprexa IM
[2024-04-19] MEDS: Potassium Chloride ER 20 MEQ TAB.ER.PRT 40 MEQ PO (13:15)
--- NOTE | 2024-04-19 14:45 | PC.NURSE ---
pt is currently asleep, respirations even and unlabored
--- NOTE | 2024-04-19 14:57 | PC.NURSE ---
report given to Angélica CASON
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
[2024-04-19] MEDS: HaloperidoL 5 MG TABLET PO (17:11)
--- NOTE | 2024-04-19 18:05 | PC.ADMIT ---
Altagracia arrived from the [facility] at 1616 via wheelchair. She was compliant with skin check and vitals, both unremarkable. She refused to sign in on a CV and is currently a Section 12B. Lelo was labile, paranoid, suspicious, and irritable and refused to participate in admission process or be oriented to the unit. She stated multiple times, I don't want to be here. I'm not crazy and the meds don't work anyway . Altagracia reports I was just at [facility] for 2 weeks and now I'm going to be stuck here Per crisis evaluation, Altagracia was recently admitted at [facility] in [place] in March of this year for 3 weeks following a recent breakup and the loss of housing. Crisis evaluation also states the friend she resides with reports she has not seen Altagracia with, or take, any medication since going to her house 2 weeks ago. Crisis was contacted and pt was found sitting in roommates car tearful and stated we are here because i am scared of the dark... the shower is coming to get all of us and displaying bizarre behaviors, lability, and disorganized speech. Once TW and the pt left the treatment room, the patient paced the hallways crying and vocalizing her anger at being admitted. I don't want to be here! She also states, my last name is Pascual. It's my mothers maiden name. I hate her . she also reporting hating several other family members. Everytime I get like this they just want to lock me up . She sat on the floor crying and eventually agreed to take PRN medication. Several female patients gathered around her, including her roommate and showed support to the patient in an attempt to deescalate the pt. Pt accepted Haldol 5mg and Ativan 2mg PO. SHe eventually walked to her room, ate dinner, and remained in behavioral control. She continued to refuse to participate in admission assessment and remains on 15min checks for safety.
[2024-04-19] MEDS: Nicotine Polacrilex 2 MG GUM 4 MG BUCCAL (18:21)
[2024-04-20 08:45] VITALS: BP 140/75; PULSE 98; RESP 16; TEMP 36.9; O2SAT 95
--- NOTE | 2024-04-20 08:49 | PC.NURSE ---
pt refused ordered labs; providers EL and CAW made aware
--- NOTE | 2024-04-20 10:32 | PC.NURSE ---
pt became aggitated, was hitting doors and vocalized not wanting to be here. Nurse was able to deescalate. Pt declined scheduled and prn medication. Provider eL made aware
[2024-04-20] MEDS: Lurasidone HCl 20 MG TABLET PO (12:21)
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
[2024-04-20 20:00] VITALS: BP 148/83; PULSE 94; RESP 16; TEMP 36.7; O2SAT 97
[2024-04-20] MEDS: hydrOXYzine HCL 25 MG TABLET PO (20:33)
[2024-04-21 07:00] VITALS: BMI 62.1
[2024-04-21 08:00] VITALS: BP 157/89; PULSE 81; RESP 16; TEMP 36.8; O2SAT 98
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
[2024-04-21] MEDS: hydrOXYzine HCL 25 MG TABLET PO (11:52)
[2024-04-21 15:00] VITALS: BP 134/80; PULSE 88; RESP 16; TEMP 36.6; O2SAT 97
[2024-04-21] MEDS: Acetaminophen 325 MG TABLET 650 MG PO (16:59)
--- NOTE | 2024-04-21 17:45 | PC.NURSE ---
Altagracia signed a CV form with Dr Barry and signed a 3 Day notice with staff.
[2024-04-21 22:00] VITALS: BP 139/84; PULSE 98; RESP 16; TEMP 36.8; O2SAT 96
[2024-04-21] MEDS: Lurasidone HCl 20 MG TABLET PO (22:15)
--- NOTE | 2024-04-22 06:49 | PC.NURSE ---
Patient was asleep at shift change and then declined flu vaccine. She will accept the shot Thursday.
[2024-04-22 08:21] LABS: Estimated Average Glucose 114 mg/dL; Hemoglobin A1c % 5.6 % (<6.0)
[2024-04-22 08:30] LABS: Alanine Aminotransferase 27 U/L (0-31); Albumin Level 3.4 g/dL (3.5-5.0); Alkaline Phosphatase 76 U/L (39-117); Anion Gap 9 (12-20); Aspartate Amino Transferase 14 U/L (5-31); Bilirubin Total 0.4 mg/dL (0.0-1.0); Blood Urea Nitrogen 6 mg/dL (9-16); Calcium 8.3 mg/dL (8.4-10.2); Carbon Dioxide 28 mmol/L (22-29); Chloride 108 mmol/L (96-108); Creatinine Clr Calc Pharmacy 177.4; Estimated Glomerular Filt Rate > 60; Glucose Random 105 mg/dL (60-115); Sodium 141 mmol/L (135-145)
[2024-04-22] MEDS: Acetaminophen 325 MG TABLET 650 MG PO (08:33)
[2024-04-22 08:35] LABS: Cholesterol 127 mg/dL (<200); HDL Cholesterol 33 mg/dL (>40); LDL Cholesterol Calculated 81 mg/dL (<100); Magnesium 1.9 mg/dL (1.6-2.6); Triglycerides 66 mg/dL (<150)
[2024-04-22 08:50] LABS: Free T4 (Free Thyroxine) 0.92 ng/dL (0.71-1.85); Thyroid Stimulating Hormone 1.47 uIU/mL (0.32-4.0)
[2024-04-22 09:00] VITALS: BP 156/80; PULSE 81; RESP 16; TEMP 36.7; O2SAT 98
[2024-04-22 09:06] LABS: Folate 7.2 ng/mL (> or = 4.0); Vitamin B12 < 148 pg/mL (200-900)
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
[2024-04-22] MEDS: hydrOXYzine HCL 25 MG TABLET PO (12:25)
[2024-04-22 14:15] VITALS: BP 136/84; PULSE 92; RESP 16; TEMP 36.6; O2SAT 97
[2024-04-22 18:00] VITALS: BP 139/89; PULSE 84; TEMP 36.6; O2SAT 98
[2024-04-22] MEDS: lamoTRIgine 25 MG TABLET PO (20:46)
[2024-04-22] MEDS: traZODone HCL 25 MG HALFTAB PO (20:46)
[2024-04-22] MEDS: Lurasidone HCl 20 MG TABLET PO (20:46)
[2024-04-23 08:07] VITALS: BP 158/88; PULSE 90; RESP 18; TEMP 36.7; O2SAT 98
[2024-04-23] MEDS: Acetaminophen 325 MG TABLET 650 MG PO (08:50)
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
[2024-04-23] MEDS: hydrOXYzine HCL 25 MG TABLET PO ×2 (14:28→20:44)
[2024-04-23] MEDS: lamoTRIgine 25 MG TABLET PO (14:48)
[2024-04-23] MEDS: Calcium Carbonate 750 MG TAB.CHEW PO (17:17)
[2024-04-23 18:00] VITALS: BP 136/70; PULSE 78; TEMP 36.4; O2SAT 100
[2024-04-23] MEDS: traZODone HCL 25 MG HALFTAB PO (20:44)
[2024-04-23] MEDS: Lurasidone HCl 20 MG TABLET PO (20:45)
[2024-04-24 08:04] VITALS: BP 129/77; PULSE 71; RESP 18; TEMP 36.6; O2SAT 97
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
[2024-04-24] MEDS: lamoTRIgine 25 MG TABLET PO (08:38)
[2024-04-24] MEDS: hydrOXYzine HCL 25 MG TABLET PO ×3 (08:38→22:15)
[2024-04-24] MEDS: Ibuprofen 600 MG TABLET PO ×2 (08:39→22:20)
[2024-04-24 13:00] VITALS: BP 138/79; PULSE 80; RESP 18; TEMP 36.3; O2SAT 100
[2024-04-24 18:00] VITALS: BP 147/84; PULSE 87; RESP 16; TEMP 37.3; O2SAT 94
[2024-04-24] MEDS: Lurasidone HCl 20 MG TABLET PO (22:13)
[2024-04-24] MEDS: traZODone HCL 25 MG HALFTAB PO (22:13)
[2024-04-25 08:00] VITALS: BP 132/88; PULSE 73; RESP 18; TEMP 36.7; O2SAT 98
[2024-04-25] MEDS: lamoTRIgine 25 MG TABLET PO (08:33)
[2024-04-25] MEDS: hydrOXYzine HCL 25 MG TABLET PO ×3 (08:36→21:23)
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
[2024-04-25 13:00] VITALS: BP 144/86; PULSE 80; RESP 16; TEMP 36.2; O2SAT 100
[2024-04-25] MEDS: Acetaminophen 325 MG TABLET 650 MG PO (14:37)
[2024-04-25 19:21] VITALS: BP 153/81; PULSE 85; RESP 18; TEMP 36.5; O2SAT 96
[2024-04-25] MEDS: traZODone HCL 25 MG HALFTAB PO (21:23)
[2024-04-25] MEDS: Lurasidone HCl 20 MG TABLET PO (21:23)
[2024-04-26 08:46] VITALS: BP 164/100; PULSE 71; RESP 16; TEMP 36.2; O2SAT 98
[2024-04-26 08:47] VITALS: BP 142/88
[2024-04-26] MEDS: lamoTRIgine 25 MG TABLET PO (09:23)
[2024-04-26] MEDS: hydrOXYzine HCL 25 MG TABLET PO (09:23)
[2024-04-26] MEDS: Ibuprofen 600 MG TABLET PO (09:25)
[2024-04-26 09:52] VITALS: BP 134/79
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
== END 2024-04-26 11:30 | disposition home or self-care (01) | DRG 753 ==
LOC: HO.ED 04-19 01:03 → HO.PM5 04-19 13:54
PROVIDERS: Admitting Provider Clinical Nurse Specialist Psychiatric/Mental Health, Adult; Emergency Provider Emergency Medicine; Visit Provider Psychiatry & Neurology Psychiatry
DX: F31.13 Bipolar disorder, current episode manic without psychotic features, severe (principal); F25.0 Schizoaffective disorder, bipolar type; F17.210 Nicotine dependence, cigarettes, uncomplicated; Z78.1 Physical restraint status; Z71.6 Tobacco abuse counseling; Z91.51 Personal history of suicidal behavior; Z63.0 Problems in relationship with spouse or partner; Z20.822 Contact with and (suspected) exposure to COVID-19; Z79.899 Other long term (current) drug therapy
CPT/HCPCS: 0241U; 36415; 80048; 80053; 80061; 80307; 81003; 81025; 82607; 82746; 83036; 83735; 84439; 84443; 85025; 93005; 99285; J2359

== ENCOUNTER → 2024-04-19 13:40 | Outpatient (BNV) | payer OTHER, SELFPAY | PROVIDERS: Admitting Provider Clinical Nurse Specialist Psychiatric/Mental Health, Adult; Emergency Provider Emergency Medicine; Visit Provider Psychiatry & Neurology Psychiatry | DX: F31.9 Bipolar disorder, unspecified (principal); F43.11 Post-traumatic stress disorder, acute | CPT/HCPCS: 99231; 99232 ==

== ENCOUNTER 2024-06-03 00:04 | Emergency (ER) | payer MEDICAID, SELFPAY ==
[2024-06-03 00:27] VITALS: BP 152/107; PULSE 94; RESP 18; TEMP 36.8; O2SAT 96; BMI 62.7
[2024-06-03 00:58] LABS: IDNOW Serial# 08D9AD1C; Strep A Nucleic Acid Negative (Negative)
[2024-06-03 01:23] LABS: Influenza A PCR NEGATIVE (Negative); Influenza B PCR NEGATIVE (Negative); Resp Syncy Virus RNA Qual PCR NEGATIVE (Negative); SARS COV2 PCR INHOUSE NEGATIVE (Negative)
--- NOTE | 2024-06-03 03:21 | ED.URI ---
HPI - URI/Sore Throat General Chief Complaint: Upper Respiratory Symptoms Stated Complaint: sore throat- cannot hear out of both ears Time Seen by Provider: 06/03/24 03:15 Source: patient Mode of arrival: ambulatory Limitations: no limitations History of Present Illness ED Provider: Dr. Johnson HPI Narrative: one week of cough and sore throat, patient complaining of nasal congestion MD elicited complaint: sore throat, rhinorrhea and nasal congestion Related Data Previous Rx's ?Medication ?Instructions ?Recorded clvuceqinp-onctxqsaaenwa-aouwlzpt 1 cap PO Q6H PRN pain #20 caps 06/09/20 50 mg-300 mg-40 mg capsule (Fioricet) famotidine 20 mg tablet (Pepcid) 20 mg PO BID 14 days #28 tabs 10/12/21 omeprazole 40 mg capsule,delayed 40 mg PO DAILY 14 days #14 caps 11/05/21 release lidocaine 5 % topical patch 1 patch topical DAILY PRN pain #30 09/15/23 (Lidoderm) ea acetaminophen 500 mg tablet 500 mg PO Q6H PRN fever or pain 30 04/26/24 days #30 tabs albuterol sulfate 90 mcg/actuation 2 puff inhalation Q4-6H PRN 04/26/24 aerosol inhaler shortness of breath or wheezing 30 days #6.7 grams hydroxyzine HCl 25 mg tablet 25 mg PO TID 30 days #90 tabs 04/26/24 ibuprofen 600 mg tablet 600 mg PO Q8H PRN Pain, Mild (Pain 04/26/24 Scale 1-3) #0 tabs lamotrigine 25 mg tablet See Rx Instructions .Route 04/26/24 .COMPLEX #36 tabs lurasidone 20 mg tablet (Latuda) 20 mg PO BEDTIME 30 days #30 tabs 04/26/24 nicotine (polacrilex) 4 mg gum 4 mg buccal Q2H 30 days #100 ea 04/26/24 trazodone 50 mg tablet See Rx Instructions .Route 04/26/24 .COMPLEX PRN insomnia 30 days #30 tabs fluticasone furoate 27.5 2 spray intranasal DAILY PRN nasal 06/03/24 mcg/actuation nasal congestion #5.9 mL spray,suspension (Children's Flonase Sensimist) jxmokctihprwp-RR-fxohjaefrgu 5 10 ml PO Q4H PRN cough #237 mL 06/03/24 mg-10 mg-100 mg/5 mL oral liquid Allergies Allergy/AdvReac Type Severity Reaction Status Date / Time naproxen [NAPROXEN] Allergy Mild VOMITING Verified 06/03/24 00:27 Review of Systems Review of Systems: Yes all other systems are reviewed and are negative Neurologic: Denies Sensory deficit (Neuro) [facility] Past Medical History Medical History Bipolar I disorder PTSD (post-traumatic stress disorder) Schizoaffective disorder, bipolar type Asthma COVID-19 Surgical History H/O knee surgery Social History Social History Household Members: Friend(s) Household Members Other:: my friend and her 5 kids Housing: Apartment Do you presently have visiting nurse or other home services: No Unable to assess alcohol history related to: Refusing to respond Alcohol intake: never Patient Tobacco Use Status: Current everyday Tobacco user Tobacco use type: Cigarette Cigarette Packs Per Day: 1 Cigarettes Per Day: 20.0 Second Hand Smoke Exposure: Yes Substance Use Type: Marijuana Do you have a plan to hurt others: No Plan service: No Sexual orientation: Straight/Heterosexual Physical Exam Vital Signs: Vital Signs: Last Vital Signs Temp 98.3 F 06/03/24 00:27 Pulse 94 06/03/24 00:27 Resp 18 06/03/24 00:27 BP 152/107 H 06/03/24 00:27 Pulse Ox 96 06/03/24 00:27 O2 Del Method Room Air 06/03/24 00:27 BMI result Body Mass Index 62.7 Const: Nutritional Appearance: obese Orientation/consciousness: oriented to person and patient oriented x3 Limitations: no limitations HEENT: Other: pharyngeal erythema with slight exudate Head: Yes normal to inspection Ears: external ears normal General nose exam: Normal external nose present Throat: Yes posterior oropharynx normal Eyes: General: appearance normal, both eyes and all related structures Neck: Other: supple Neck: Yes normal visual inspection Chest: Chest palpation & inspection: normal inspection of the chest Resp: Auscultation: clear to auscultation bilaterally Cardio: Jugular venous distension: no JVD Rate: regular rate Rhythm: regular rhythm Heart sounds: S1 normal heart sound present and S2 normal heart sound present GI: Inspection: Yes normal to inspection Palpation (GI): Soft to palpation, nontender and No hepatosplenomegaly present Auscultation: normal bowel sounds : General: Yes no CVA tenderness Back/Spine/Pelvis: Back: no CVA tenderness Skin: General skin exam: no rashes or lesions noted Neuro: General: oriented to person and patient oriented x3 Cranial nerves: Yes CN's II-XII intact bilaterally Motor exam (neuro): 5/5 motor strength present throughout Sensory Exam: No Sensory deficit (Neuro) Extrem: General: Yes normal to inspection Psych: Appearance: grossly normal Course Reevaluation(s) Reevaluation #1: flu covid rsv all negative strep negative will order a monospot. Start flonase and cough medication Time: 03:28 Medical Decision Making Differential Diagnosis Differential Diagnoses: The differential diagnosis associated with the presentation includes (flu, covid, rsv, strep, mono, pharyngitis, URI) Lab Data Labs: Lab Results 06/03/24 Range/Units 00:34 Influenza Type A (PCR) NEGATIVE (Negative) Influenza Type B (PCR) NEGATIVE (Negative) RSV RNA Qual (PCR) NEGATIVE (Negative) SARS-CoV-2 RNA (RT-PCR) NEGATIVE (Negative) S. pyogenes GrpA HUONG Negative (Negative) Tests considered The following testing was considered but not selected: CXR considered but lungs are clear pulse ox normal Prescription Management I considered prescription management with: Antibiotic (no evidence of bacterial infection) Discharge Plan Discharge Clinical Impression: Viral infection, Upper respiratory infection Patient Disposition: Home, Self-Care Instructions: Pharyngitis (ED), Upper Respiratory Infection (ED), Viral Syndrome (ED) Prescriptions: New Children's Flonase Sensimist 27.5 mcg/actuation spray,suspension 2 spray intranasal DAILY PRN (Reason: nasal congestion) Qty: 5.9 0RF Rx Instructions: into each nostril njgrqjcibrflm-[place]-rgwrtdaosds 5-10-100 mg/5 mL liquid 10 ml PO Q4H PRN (Reason: cough) Qty: 237 0RF No Action iospehidva-azjhpwlyozzzo-dyhm [Fioricet] 50-300-40 mg capsule 1 cap PO Q6H PRN (Reason: pain) Qty: 20 0RF famotidine [Pepcid] 20 mg tablet 20 mg PO BID 14 Days Qty: 28 0RF omeprazole 40 mg capsule,delayed release(DR/EC) 40 mg PO DAILY 14 Days Qty: 14 0RF nicotine (polacrilex) 4 mg gum 4 mg buccal Q2H 30 Days Qty: 100 0RF hydroxyzine HCl 25 mg Tablet 25 mg PO TID 30 Days Qty: 90 0RF ibuprofen 600 mg Tablet 600 mg PO Q8H PRN (Reason: Pain, Mild (Pain Scale 1-3)) Qty: 0 0RF lurasidone [Latuda] 20 mg Tablet 20 mg PO BEDTIME 30 Days Qty: 30 0RF trazodone 50 mg tablet See Rx Instructions .ROUTE .COMPLEX PRN (Reason: insomnia) 30 Days Qty: 30 0RF Rx Instructions: take 1/2 to 1 tab at bedtime as needed for insomnia albuterol sulfate 90 mcg/actuation HFA aerosol inhaler 2 puff inhalation Q4-6H PRN (Reason: shortness of breath or wheezing) 30 Days Qty: 6.7 0RF lamotrigine 25 mg Tablet See Rx Instructions .ROUTE .COMPLEX Qty: 36 0RF Rx Instructions: take 1 tab daily for 8 days; then take 2 tabs daily for 14 days acetaminophen 500 mg tablet 500 mg PO Q6H PRN (Reason: fever or pain) 30 Days Qty: 30 0RF lidocaine [Lidoderm] 5 % adhesive patch,medicated 1 patch topical DAILY MDD remove after 12 hours PRN (Reason: pain) Qty: 30 0RF Rx Instructions: leave on most painful area for up to 12 hrs Referrals: [facility] [Primary Care Provider] - 1 week Print Language: Upper Sorbian
[2024-06-03] MEDS: guaiFENesin 200 MG/10 ML 10 ML LIQUID PO (04:00)
[2024-06-03] MEDS: Ibuprofen 800 MG TABLET PO (04:13)
[2024-06-03 04:25] LABS: Monotest Negative (Negative)
[2024-06-03 05:09] VITALS: BP 152/107; PULSE 94; RESP 18; TEMP 36.8; O2SAT 96
== END 2024-06-03 04:15 | disposition home or self-care (01) ==
PROVIDERS: Emergency Provider Emergency Medicine
DX: J06.9 Acute upper respiratory infection, unspecified (principal); B34.9 Viral infection, unspecified; J02.9 Acute pharyngitis, unspecified; R09.81 Nasal congestion; F17.210 Nicotine dependence, cigarettes, uncomplicated; Z03.818 Encounter for observation for suspected exposure to other biological agents ruled out; Z79.899 Other long term (current) drug therapy
CPT/HCPCS: 0241U; 36415; 86308; 87651; 99283

== ENCOUNTER 2024-07-09 08:56 | Emergency (ER) | payer OTHER, MEDICAID, SELFPAY ==
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
[2024-07-09 09:07] VITALS: BP 149/103; PULSE 82; RESP 15; TEMP 36.6; O2SAT 97; BMI 62.2
--- NOTE | 2024-07-09 09:30 | PC.NURSE ---
visual acuity performed by tech
[2024-07-09] MEDS: Tetracaine HCl/PF 0.5% Oph Sol 4 ML DROPS 1 DROP EYE-LEFT (09:58)
[2024-07-09] MEDS: Fluorescein Sodium STRIP 1 STRIP EYE-LEFT (09:59)
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
[2024-07-09 14:40] VITALS: BP 149/103; PULSE 82; RESP 15; TEMP 36.6; O2SAT 97
== END 2024-07-09 14:40 | disposition home or self-care (01) ==
PROVIDERS: Emergency Provider Emergency Medicine Emergency Medical Services
DX: S00.12XA Contusion of left eyelid and periocular area, initial encounter (principal); Y04.2XXA Assault by strike against or bumped into by another person, initial encounter; Y93.89 Activity, other specified; Y92.129 Unspecified place in nursing home as the place of occurrence of the external cause; Y99.0 Civilian activity done for income or pay
CPT/HCPCS: 70486; 99283; 99284